=== PATIENT | female | born 1950 | race Caucasian/White ===

== ENCOUNTER 2019-08-12 12:48 | Outpatient (CLI) | payer MEDICARE, SELFPAY ==
--- NOTE | ~2019-08-12 | MMUS_ITS ---
EXAMINATION: MM diagnostic [facility] BI w ramy, US breast LT limited HISTORY: Six-month follow-up for probably benign left breast masses TECHNIQUE: Craniocaudal, mediolateral, and mediolateral oblique 3-D tomosynthesis images of the breas ts were performed and synthetic 2-D images were generated. A spot compression view of the right breas t is also obtained. CAD analysis was submitted and interpreted. High resolution limited left breast u ltrasound was performed. COMPARISON: 02/02/2019, 08/04/2018, 07/28/2018, 07/27/2017, 07/22/2016 BREAST PARENCHYMAL COMPOSITION: There are scattered areas of fibroglandular density. FINDINGS: MAMMOGRAPHIC FINDINGS: Right breast: There is an area of subtle, stable architectural distortion of the right breast at the site of prior excisional biopsy. No suspicious mass, calcification, or architectural distortion are i dentified. Left breast: There is a subtle 4 mm oval, obscured, equal density mass in the middle third of the out er breast at the 3:00 location approximately 6 cm from the nipple. No associated architectural distor tion or suspicious calcification are identified. ULTRASOUND: The previously described cluster of microcysts at the 12:00 location 4 cm from the nipple is no longe r identified. There is a 4 mm oval, circumscribed, parallel, hypoechoic mass at the 12:00 location 4 cm from the nipple which could reflect confluence of the previously described microcysts. There is a stable 3 mm round, anechoic mass with no posterior features or internal vascularity at the 2:00 locat ion 6 cm from the nipple. IMPRESSION: 1. Probably benign left breast findings and no mammographic evidence of malignancy in the right breas t. 2. Given one year of interval stability, recommend 12 month followup left diagnostic mammogram and ul trasound. BI-RADS category 3, probably benign findings. Reviewed, dictated and finalized at location A. [place] DEPARTMENT SUPERVISOR IMPRESSION: 1. Probably benign left breast findings and no mammographic evidence of maligna ncy in the right breast. 2. Given one year of interval stability, recommend 12 month followup left diagn ostic mammogram and ultrasound. BI-RADS category 3, probably benign findings.
== END 2019-08-12 12:49 | disposition home or self-care (01) ==
PROVIDERS: PCP Family Medicine; Visit Provider Family Medicine
DX: R92.8 Other abnormal and inconclusive findings on diagnostic imaging of breast (principal)
CPT/HCPCS: 76642; 77062; 77066; G0279

== ENCOUNTER 2020-09-18 11:19 | Outpatient (CLI) | payer MEDICARE, SELFPAY ==
--- NOTE | ~2020-09-18 | MMUS_ITS ---
EXAMINATION: MM diagnostic kalyani BI w ramy, US breast LT limited HISTORY: Six-month follow-up for probably benign left breast mass TECHNIQUE: Craniocaudal, mediolateral, and mediolateral oblique 3-D tomosynthesis images of the william ts were performed and synthetic 2-D images were generated. CAD analysis was submitted and interpreted . High resolution limited left breast ultrasound was performed. COMPARISON: 08/12/2019, 02/02/2019, 08/04/2018, 07/28/2018, 07/27/2017 BREAST PARENCHYMAL COMPOSITION: There are scattered areas of fibroglandular density. FINDINGS: MAMMOGRAPHIC FINDINGS: Right breast: Subtle right breast architectural distortion is again noted, most consistent with prior excisional biopsy. No suspicious mass, calcification, or architectural distortion are identified. Left breast: There is a stable 4 mm oval, obscured, equal density mass in the middle third of the out er breast at 3:00 location 6 cm from the nipple. No suspicious calcification or architectural distort ion are identified. ULTRASOUND: There is a 6 mm x 3 mm cluster of microcysts at the 12:00 location 3 cm from the nipple. Hypoechoic m asses at the 1:00 location 5 cm from the nipple continue to decrease in size. There is an intramammar y lymph node at the 3:00 location 5 cm from the nipple. A cyst is noted at the 12:00 location 4 cm fr om the nipple. IMPRESSION: 1. Left breast masses with two years of interval stability, consistent with benign findings. No mammo graphic or sonographic evidence of malignancy. 2. Recommend routine screening mammography in one year. BI-RADS Category 2: Benign finding(s). Reviewed, dictated and finalized at location A. IMPRESSION: 1. Left breast masses with two years of interval stability, consistent with linda ign findings. No mammographic or sonographic evidence of malignancy. 2. Recommend routine screening mammography in one year. BI-RADS Category 2: Benign finding(s).
== END 2020-09-18 11:20 | disposition home or self-care (01) ==
PROVIDERS: PCP Family Medicine; Visit Provider Family Medicine
DX: N60.01 Solitary cyst of right breast (principal)
CPT/HCPCS: 76642; 77062; 77066; G0279

== ENCOUNTER 2021-09-27 07:47 | Outpatient (CLI) | payer MEDICARE, SELFPAY ==
--- NOTE | ~2021-09-27 | MM_ITS ---
EXAMINATION: MM screening [facility] BI w ramy HISTORY: Screening TECHNIQUE: Craniocaudal and mediolateral oblique 3-D tomosynthesis images were obtained and synthetic 2-D images were generated. CAD analysis was submitted and interpreted. COMPARISON: Comparison to multiple prior studies sequentially, with oldest reviewed study dated 10/2017. BREAST PARENCHYMAL COMPOSITION: There are scattered areas of fibroglandular density. FINDINGS: There is a developing cluster of calcifications in the upper outer quadrant of the left chris ast. The right breast is stable without evidence for malignancy. IMPRESSION: 1. Developing cluster of left breast calcifications, upper outer quadrant. 2. Magnification views are recommended. BI-RADS Category 0: Incomplete: Needs additional imaging evaluation. Reviewed, dictated and finalized at location A.
== END 2021-09-27 07:48 | disposition home or self-care (01) ==
LOC: ANHIMG 07:49
PROVIDERS: PCP Family Medicine; Visit Provider Family Medicine
DX: Z12.31 Encounter for screening mammogram for malignant neoplasm of breast (principal); R92.8 Other abnormal and inconclusive findings on diagnostic imaging of breast
CPT/HCPCS: 77063; 77067

== ENCOUNTER 2021-10-07 12:50 | Outpatient (CLI) | payer MEDICARE, SELFPAY ==
--- NOTE | ~2021-10-07 | MM_ITS ---
EXAMINATION: MM diagnostic mammo unilat LT HISTORY: Developing clustered microcalcifications reported in posterior upper outer left breast on 09/28/2019 screening mammogram TECHNIQUE: Additional 3-D ML tomosynthesis images of the left breast were performed and synthetic 2-D images were generated. Magnification ML, MLO and CC projection views. CAD analysis was submitted and interpreted. COMPARISON: 09/27/2021 bilateral screening mammogram 09/18/2020 diagnostic bilateral mammogram 02/02/2019diagnostic left mammogram 08/04/2018 diagnostic left mammogram FINDINGS: There is a cluster of grouped microcalcifications in the posterior upper outer quadrant; si milar calcifications at same site are noted on prior mammograms above. These are consistent with linda ign mammographic lesion, likely calcified fibroadenoma, less likely benign calcified fat necrosis. IMPRESSION: 1. Benign finding 2. Routine mammographic screening is recommended BI-RADS Category 2: Benign finding(s). Reviewed, dictated and finalized at location A.
== END 2021-10-07 12:51 | disposition home or self-care (01) ==
LOC: ANHIMG 12:55
PROVIDERS: PCP Family Medicine; Visit Provider Family Medicine
DX: R92.8 Other abnormal and inconclusive findings on diagnostic imaging of breast (principal)
CPT/HCPCS: 77065

== ENCOUNTER 2022-11-26 13:03 | Outpatient (CLI) | payer MEDICARE, SELFPAY ==
--- NOTE | ~2022-11-26 | MM_ITS ---
EXAMINATION: MM screening [facility] BI w ramy HISTORY: Screening TECHNIQUE: Craniocaudal and mediolateral oblique 3-D tomosynthesis images were obtained and synthetic 2-D images were generated. CAD analysis was submitted and interpreted. COMPARISON: Comparison to multiple prior studies sequentially, with oldest reviewed study dated 08/04/2018. BREAST PARENCHYMAL COMPOSITION: There are scattered areas of fibroglandular density. FINDINGS: There is no evidence of suspicious mass, calcification, or architectural distortion to sugg est malignancy in either breast. There has been no suspicious interval change. IMPRESSION: 1. No mammographic evidence of malignancy. 2. Recommend routine screening mammography in one year. BI-RADS Category 1: Negative Reviewed, dictated and finalized at location A.
== END 2022-11-26 13:04 | disposition home or self-care (01) ==
LOC: ANHIMG 13:04
PROVIDERS: PCP Family Medicine; Visit Provider Family Medicine
DX: Z12.31 Encounter for screening mammogram for malignant neoplasm of breast (principal)
CPT/HCPCS: 77063; 77067

== ENCOUNTER 2023-07-30 10:00 | Outpatient (CLI) | payer MEDICARE, SELFPAY ==
--- NOTE | ~2023-07-30 | XR_ITS ---
Clinical Indication: PAF PA and lateral views of the chest: Comparison: None Findings: The lungs are clear, without evidence of focal consolidation or pleural effusion. Cardiome diastinal silhouette is within normal limits. Bones and soft tissues are unremarkable. Impression: Normal chest. Reviewed, dictated and finalized at location . 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
--- NOTE | 2023-07-31 07:04 | WPDPFTINT ---
PFT Procedure Performed PFT Procedure Performed Plethysmography (Lung Vol) Diffusing Cap (DLCO) Flow Vol Loop Spirometry w/o Bronchodil PFT Interpretation This is a pulmonary function test with spirometry, plethysmography and diffusing capacity. The test was performed and results interpreted in accordance with the 2019 and 2005 ATS/ERS Task Force guidelines respectively using the Global Lung Function Initiative-2012 reference equations. Patient demonstrated good effort and cooperation. Reproducibility criteria were met. The quality of the spirometry maneuver was Grade A. Of note, the patient had good effort but had difficulty with testing due to being extremely claustrophobic. Findings: Spirometry: There is decreased maximal expiratory airflow at all lung volumes. The contour the inspiratory flow tracing is normal. The FVC is 3.17 L, 153% predicted. The FEV1 is 1.91 L, 117% predicted. The FEV1: FVC ratio 60%. Plethysmography: The total lung capacity is 4.54 L, 118% predicted. The functional residual capacity is 1.96 L, 91% predicted. The residual volume is 1.37 L, 76% predicted. Diffusing capacity: The diffusing capacity unadjusted for hemoglobin and carboxyhemoglobin is 18.7, 109% predicted. The diffusing capacity adjusted for alveolar volume is 3.79, 82% predicted. Impression: There is a mild obstructive abnormality with a normal FEV1. The lung volumes are normal. The diffusing capacity is normal. There are no prior studies for comparison
== END 2023-07-30 10:01 | disposition home or self-care (01) ==
LOC: ANHPFT 10:03
PROVIDERS: PCP Family Medicine; Visit Provider Internal Medicine Cardiovascular Disease
DX: I48.0 Paroxysmal atrial fibrillation (principal); Z79.899 Other long term (current) drug therapy
CPT/HCPCS: 71046; 94375; 94726; 94729

== ENCOUNTER 2024-02-04 14:26 | Outpatient (CLI) | payer MEDICARE, SELFPAY ==
--- NOTE | ~2024-02-04 | MM_ITS ---
EXAMINATION: MM screening [facility] BI w ramy HISTORY: Screening TECHNIQUE: Craniocaudal and mediolateral oblique 3-D tomosynthesis images were obtained and synthetic 2-D images were generated. CAD analysis was submitted and interpreted. COMPARISON: Comparison to multiple prior studies sequentially, with oldest reviewed study dated 08/12. BREAST PARENCHYMAL COMPOSITION: Not dense: There are scattered areas of fibroglandular density. FINDINGS: There is no evidence of suspicious mass, calcification, or architectural distortion to sugg est malignancy in either breast. There has been no suspicious interval change. IMPRESSION: 1. No mammographic evidence of malignancy. 2. Recommend routine screening mammography in one year. BI-RADS Category 1: Negative Reviewed, dictated and finalized at location B.
== END 2024-02-04 14:27 | disposition home or self-care (01) ==
LOC: ANHIMG 14:27
PROVIDERS: PCP Family Medicine; Visit Provider Family Medicine
DX: Z12.31 Encounter for screening mammogram for malignant neoplasm of breast (principal)
CPT/HCPCS: 77063; 77067

== ENCOUNTER 2024-08-02 00:23 | Day surgery (SDC) | payer MEDICARE, SELFPAY ==
[2024-07-25 13:46] VITALS: BMI 22.9
--- OUTSIDE RECORDS SUMMARY | 2024-08-02 00:25 | XMS_ITS | Referral Summary ---
Author Organization [facility] [address] [facility] [address] [place] [address] Care Team Providers Care Grain Wafer Machine Operator Name Role Phone Avtar Frausto MD Primary Care Provider Encounters Date Type Department Care Team Description 07/25/2024 Orders Only [facility] Medical [facility] Cardiology [address] [place] [address] Avtar Frausto MD 07/20/2024 10:00 AM SERVICE CENTER SUPERVISOR Office Visit [facility] Medical [facility] Cardiology [address] [facility] [address] [place] [address] Keegan Monsalve MD PAF (paroxysmal atrial fibrillation) (CMS/HCC) (HCC) (Primary Dx); On amiodarone therapy; Chronic anticoagulation; White coat syndrome with diagnosis of hypertension from Last 3 Months Allergies No known active allergies Medications cartilage/colla gen II/hyaluron (MOVE FREE ULTRA ORAL) Take by mouth daily Active apixaban (ELIQUIS) 5 mg tablet Take 1 tablet (5 mg total) by mouth 2 (two) times a day Active hydroCHLOROthia zide (HYDRODIURIL) 25 mg tablet Take 1 tablet (25 mg total) by mouth daily Active amLODIPine (NORVASC) 10 mg tablet Take 1 tablet (10 mg total) by mouth daily Active rosuvastatin (CRESTOR) 5 mg tablet 3 Active amiodarone (PACERONE) 200 mg tablet TAKE ONE-HALF TABLET BY MOUTH DAILY 45 tablet 3 4 Active carvediloL (COREG) 25 mg tablet TAKE 1 TABLET BY MOUTH TWICE DAILY WITH MEALS 200 tablet 5 Active losartan (COZAAR) 100 mg tablet TAKE 1 TABLET BY MOUTH DAILY 100 tablet 5 Active carvediloL (COREG) 25 mg tablet TAKE 1 TABLET BY MOUTH TWICE DAILY WITH MEALS 200 tablet 3 4 07/11/19 25 Discontinued losartan (COZAAR) 100 mg tablet TAKE 1 TABLET BY MOUTH DAILY 100 tablet 3 4 07/11/19 25 Discontinued Active Problems No known active problems Social History Tobacco Use Types Packs/Day Years Used Date Smoking Tobacco: Never Smokeless Tobacco: Never Alcohol Use Standard Drinks/Week Comments Not Currently 0 (1 standard drink = 0.6 oz pur e alcohol) Comments Unknown Sex and Gender Information Value Date Recorded Sex Assigned at Not on file Legal Sex Female 1:46 PM CDT Gender Identity Not on file Sexual Orientation Not on file Last Filed Vital Signs Vital Sign Reading Time Taken Comments Blood Pressure 122/79 07/20/2024 10:19 AM SERVICE CENTER SUPERVISOR Pulse 66 07/20/2024 10:19 AM SERVICE CENTER SUPERVISOR Temperature 36.3 C (97.3 F) 07/06/2020 10:13 AM SERVICE CENTER SUPERVISOR Respiratory Rate - - Oxygen Saturation 97% 07/20/2024 10:19 AM SERVICE CENTER SUPERVISOR Inhaled Oxygen Concentration - - Weight 66.2 kg (146 lb) 07/20/2024 10:19 AM SERVICE CENTER SUPERVISOR Height 170.2 cm (5' 7 ) 07/20/2024 10:19 AM SERVICE CENTER SUPERVISOR Body Mass Index 22.87 07/20/2024 10:19 AM SERVICE CENTER SUPERVISOR Plan of Treatment Not on file Procedures Procedure Name Priority Date/Time Associated Diagnosis Comments ELECTROCARDIOGRAM REPORT Routine 025 11:55 AM SERVICE CENTER SUPERVISOR PAF (paroxysmal atrial fibrillation) (CMS/HCC) (HCC) from Last 3 Months Results * Electrocardiogram Report (07/21/2024 11:55 AM SERVICE CENTER SUPERVISOR) Keegan Monsalve MD ECG ORDERABLES Edited Result - Final from Last 3 Months Insurance [employer] [facility] Care Teams Grain Wafer Machine Operator Relationship Specialty Start Date End Date Avtar Frausto MD [address] [place] [id number] PCP - General Family Medicine 10/23/17
--- OUTSIDE RECORDS SUMMARY | 2024-08-02 00:25 | XMS_ITS | Clinical Summary ---
Author Organization [facility] [address] Address [address] [place] [address] Care Team Providers Care Human Resource Manager Name Role Phone Avtar Frausto MD Primary Care Provider [phone] Allergies No known active allergies Medications cartilage/colla [...] Discontinued Active Problems No known active problems Encounters Date Type Department Care Team Description 07/25/2024 Orders Only [facility] Cardiology [address] [place] [address] Avtar Frausto MD 07/20/2024 10:00 AM RECEIVING TEAM MEMBER Office Visit [facility] Medical Group Cardiology [address] [place] [address] Keegan Monsalve MD PAF (paroxysmal atrial fibrillation) (CMS/HCC) (HCC) (Primary Dx); On amiodarone therapy; Chronic anticoagulation; White coat syndrome with diagnosis of hypertension from Last 3 Months Surgical History Surgery Date Site/Laterality Comments TUMOR EXCISION 03/22/2017 - 04/21/2017 Medical History Medical History Date Comments Hypertension Diverticulitis Atrial fibrillation (CMS/HCC) (HCC) Family History Medical History Relation Name Comments Hypertension Brother 1 Leonardo Hypertension Brother 2 Leonardo Benavides Hypertension Daughter Nilda Hyperlipidemia Father Al Benavides Colon cancer Mother Hypertension Sister 1 Bell Hypertension Sister 2 Hypertension Sister 3 Catia Hypertension Son Adrian Relation Name Status Comments Brother 1 Leonardo Alive Brother 2 Leonardo Benavides Alive Daughter Nilda Father Al Benavides (Age 95) Mother (Age 72) Sister 1 Bell Alive Sister 2 Alive Sister 3 Catia Son Adrian Social History Tobacco Use Types Packs/Day Years Used Date Smoking Tobacco: Never Smokeless Tobacco: Never Alcohol Use Standard Drinks/Week Comments Not Currently 0 (1 standard drink = 0.6 oz pur e alcohol) Comments Unknown Sex and Gender Information Value Date Recorded Sex Assigned at Not on file Legal Sex Female 1:46 PM CDT Gender Identity Not on file Sexual Orientation Not on file Obstetrics History Last Filed Vital Signs Vital Sign Reading Time Taken Comments Blood Pressure 122/79 07/20/2024 10:19 AM RECEIVING TEAM MEMBER Pulse 66 07/20/2024 10:19 AM RECEIVING TEAM MEMBER Temperature 36.3 C (97.3 F) 07/06/2020 10:13 AM RECEIVING TEAM MEMBER Respiratory Rate - - Oxygen Saturation 97% 07/20/2024 10:19 AM RECEIVING TEAM MEMBER Inhaled Oxygen Concentration - - Weight 66.2 kg (146 lb) 07/20/2024 10:19 AM RECEIVING TEAM MEMBER Height 170.2 cm (5' 7 ) 07/20/2024 10:19 AM RECEIVING TEAM MEMBER Body Mass Index 22.87 07/20/2024 10:19 AM RECEIVING TEAM MEMBER Plan of Treatment Health Maintenance Due Date Last Done Comments Breast Cancer Screening-Mammogram 1950 Colon Cancer Screening-Colonoscopy 1950 Depression Screening 1950 Fall Risk Assessment 1950 Hepatitis C Screening 1950 Osteoporosis Screening-Bone Density Scan 1950 Hepatitis B Screening 10/27/1969 Zoster Vaccine (2 of 3) 02/24/2012 12/30/2011 DTaP/Tdap/Td Vaccine (2 - Td or Tdap) 11/27/2015 11/26/2005, 10/02/1987 Well Visit 65+ 10/27/2016 Pneumococcal vaccine 65+ Completed 04/19/2019, 03/23 Influenza Vaccine Completed 04/27/2024, , 04/19/2019, Additional history exists Procedures Procedure Name Priority Date/Time Associated Diagnosis Comments ELECTROCARDIOGRAM REPORT Routine 025 11:55 AM RECEIVING TEAM MEMBER PAF (paroxysmal atrial fibrillation) (CMS/HCC) (HCC) from Last 3 Months Results * Electrocardiogram Report (07/21/2024 11:55 AM RECEIVING TEAM MEMBER) us Keegan Monsalve MD ECG ORDERABLES Edited Result - Final from Last 3 Months Insurance [facility] LIFE INS CO [facility] MDCR HMO REF [facility] MDCR HMO REF Care Teams Human Resource Manager Relationship Specialty Start Date End Date Avtar Frausto MD [address] [place] [id number] PCP - General Family Medicine 10/23/17
[2024-08-02 07:30] VITALS: BP 141/86; PULSE 67; RESP 18; TEMP 36.1; O2SAT 99
[2024-08-02] MEDS: LACTATED RINGERS 1,000 ML 150 ML IV CONT (07:38)
--- NOTE | 2024-08-02 08:23 | WPDANESEPPF ---
Anes - Initial Pre Proc Eval Procedure: Operation Date: 08/02/24 08:30 Proposed Procedures p Colonoscopy - Sundeep Lujan MD Date/Time: 08/02/24 08:23 Surgeon: Sundeep Lujan MD Pre Op Diagnosis: family hx of cancer, hx of colon polyps Patient Data Age: 73 Gender: F Height: 1.7 m Weight: 65.5 kg Last Vital Signs Temp 36.1 C L 08/02/24 07:30 Pulse 67 08/02/24 07:30 Resp 18 08/02/24 07:30 BP 141/86 H 08/02/24 07:30 Pulse Ox 99 08/02/24 07:30 O2 Del Method Room Air 08/02/24 07:30 Allergies Allergy/AdvReac Type Severity Reaction Status Date / Time dronedarone (From Multaq) Allergy Shakiness Verified 08/02/24 07:27 codeine AdvReac Intermediate NAUSEA, Verified 08/02/24 07:27 VOMITING AND HEADACHE. TAPE Allergy Mild SKIN Uncoded 08/02/24 07:27 IRRITATION Home Medications ?Medication ?Instructions ?Recorded ?Confirmed ?Type carvedilol 25 mg tablet 25 mg PO Q12H 08/26/22 08/02/24 History losartan 100 mg tablet 100 mg PO DAILY 08/26/22 08/02/24 History amiodarone 200 mg tablet 100 mg PO DAILY 09/18/22 08/02/24 History apixaban 5 mg tablet 5 mg PO BID #200 tabs 03/22/24 08/02/24 Rx amlodipine 10 mg tablet 10 mg PO DAILY #100 tabs 04/22/24 08/02/24 Rx hydrochlorothiazide 25 mg tablet 25 mg PO DAILY #100 tabs 04/22/24 08/02/24 Rx rosuvastatin 5 mg tablet 5 mg PO DAILY #100 tabs 04/22/24 08/02/24 Rx cartilage 40 mg-collagen II-boron 1 tablet PO DAILY 07/25/24 08/02/24 History 5 mg-hyaluronate sod 3.3 mg tablet (Move Free Ultra Triple Action (boron)) Patient hx anesthesia problems: none Family hx anesthesia problems: none Results Review: All pre-operative results and documents have been reviewed as part of the pre-operative evaluation. [facility] Past Medical History Medical History (Updated 11/06/24 @ 13:22 by Avtar Frausto MD) Personal history of colon polyps, unspecified Other retirement (current) drug therapy Family history of malignant neoplasm of digestive organs Atrial fibrillation Hypertension Arthritis Social History Social History Smoking status: Never smoker Second hand tobacco smoke exposure: No Alcohol intake: current Drinks per week: 1 Alcohol use details: DIANA Substance use: never Substance use type: does not use Do You Feel Safe in your Home?: Yes Lack of Transportation: No Lack of Food: Never True Current Housing: I Have Housing Concerned About Future Housing: No Difficulty Paying Gas/Electric Bills: No Difficulty Paying for Meds: No Currently Unemployed: No Education: Associate Degree Difficulty w/ Childcare or Family Care: No Living arrangements: alone Occupation/Education: retired Gender identity (if verbalized by the patient): Female Sexual Orientation (if Verbalized by the Patient): Straight or Heterosexual Spiritual care concerns: No Anes - Eval Final PreProcedure Day of Procedure 08/02/24 08:23 Patient weight: normal Results Review: All pre-operative results and documents have been reviewed as part of the pre-operative evaluation. Informed Consent: The patient's anesthetic plan and its attendant risks and benefits were discussed with the patient/family/POA. Questions were solicited and answers provided to the satisfaction of the patient/family/POA.
--- NOTE | 2024-08-02 08:26 | P.HP_ITS ---
H&P: HPI History of Present Illness Date/Time: 08/02/24 08:26 Chief Complaint: Family history of colon cancer Narrative: This patient has family history of colorectal cancer. her mother had colon cancer when she was 72. In addition, 2 sisters and 2 brothers and her 50-year-old son have colon polyps. her last colonoscopy was 5 years ago and she had polyps. Review of Systems Review of Systems: All systems reviewed & are unremarkable except as noted in HPI and below PMFSH Past Medical History Medical History (Updated 04/27/24 @ 13:22 by Avtar Frausto MD) Personal history of colon polyps, unspecified Other senior care (current) drug therapy Family history of malignant neoplasm of digestive organs Atrial fibrillation Hypertension Arthritis Social History Social History Smoking status: Never smoker Second hand tobacco smoke exposure: No Alcohol intake: current Drinks per week: 1 Alcohol use details: DIANA Substance use: never Substance use type: does not use Do You Feel Safe in your Home?: Yes Lack of Transportation: No Lack of Food: Never True Current Housing: I Have Housing Concerned About Future Housing: No Difficulty Paying Gas/Electric Bills: No Difficulty Paying for Meds: No Currently Unemployed: No Education: Associate Degree Difficulty w/ Childcare or Family Care: No Living arrangements: alone Occupation/Education: retired Gender identity (if verbalized by the patient): Female Sexual Orientation (if Verbalized by the Patient): Straight or Heterosexual Spiritual care concerns: No Meds Home Medications and Allergies Home Medications ?Medication ?Instructions ?Recorded ?Confirmed ?Type carvedilol 25 mg tablet 25 mg PO Q12H 08/26/22 08/02/24 History losartan 100 mg tablet 100 mg PO DAILY 08/26/22 08/02/24 History amiodarone 200 mg tablet 100 mg PO DAILY 09/18/22 08/02/24 History apixaban 5 mg tablet 5 mg PO BID #200 tabs 03/22/24 08/02/24 Rx amlodipine 10 mg tablet 10 mg PO DAILY #100 tabs 04/22/24 08/02/24 Rx hydrochlorothiazide 25 mg tablet 25 mg PO DAILY #100 tabs 04/22/24 08/02/24 Rx rosuvastatin 5 mg tablet 5 mg PO DAILY #100 tabs 04/22/24 08/02/24 Rx cartilage 40 mg-collagen II-boron 1 tablet PO DAILY 07/25/24 08/02/24 History 5 mg-hyaluronate sod 3.3 mg tablet (Move Free Ultra Triple Action (boron)) Allergies Allergy/AdvReac Type Severity Reaction Status Date / Time dronedarone (From Multaq) Allergy Shakiness Verified 08/02/24 07:27 codeine AdvReac Intermediate NAUSEA, Verified 08/02/24 07:27 VOMITING AND HEADACHE. TAPE Allergy Mild SKIN Uncoded 08/02/24 07:27 IRRITATION Vital Signs Vital Signs - 24 hr 08/02/24 07:30 Temperature 97 F L Pulse Rate 67 Respiratory Rate 18 Blood Pressure 141/86 H Pulse Oximetry 99 Oxygen Delivery Room Air Exam Const: General: cooperative and healthy appearing Resp: Effort & Inspection: normal respiratory effort and able to speak in complete sentences Auscultation: clear to auscultation bilaterally Cardio: Rate: regular rate Rhythm: regular rhythm GI: Inspection: normal to inspection GI Palp: No No hepatosplenomegaly present Auscultation: normal bowel sounds Rectal Exam: deferred Skin: General skin exam: normal color Psych: Appearance: grossly normal Mental Status: mental status grossly normal Assessment and Plan Assessment and plan (1) Personal history of colon polyps, unspecified: Code(s): Z86.0100 - Personal history of colon polyps, unspecified Status: Acute Assessment and Plan: The patient is deemed a good candidate for the procedure. Consent signed. Will proceed. (2) Family history of malignant neoplasm of digestive organs: Code(s): Z80.0 - Family history of malignant neoplasm of digestive organs Status: Acute
--- NOTE | 2024-08-02 08:32 | WPDANESEPPF ---
Anes - Initial Pre Proc Eval Procedure: Operation Date: 08/02/24 08:30 Proposed Procedures p Colonoscopy - Sundeep Lujan MD Date/Time: 08/02/24 08:32 Surgeon: Sundeep Lujan MD Pre Op Diagnosis: family hx of cancer, hx of colon polyps Patient Data Age: 73 Gender: F Height: 1.7 m Weight: 65.5 kg Last Vital Signs Temp 36.1 C L 08/02/24 07:30 Pulse 67 08/02/24 07:30 Resp 18 08/02/24 07:30 BP 141/86 H 08/02/24 07:30 Pulse Ox 99 08/02/24 07:30 O2 Del Method Room Air 08/02/24 07:30 Allergies Allergy/AdvReac Type Severity Reaction Status Date / Time dronedarone (From Multaq) Allergy Shakiness Verified 08/02/24 07:27 codeine AdvReac Intermediate NAUSEA, Verified 08/02/24 07:27 VOMITING AND HEADACHE. TAPE Allergy Mild SKIN Uncoded 08/02/24 07:27 IRRITATION Home Medications ?Medication ?Instructions ?Recorded ?Confirmed ?Type carvedilol 25 mg tablet 25 mg PO Q12H 08/26/22 08/02/24 History losartan 100 mg tablet 100 mg PO DAILY 08/26/22 08/02/24 History amiodarone 200 mg tablet 100 mg PO DAILY 09/18/22 08/02/24 History apixaban 5 mg tablet 5 mg PO BID #200 tabs 03/22/24 08/02/24 Rx amlodipine 10 mg tablet 10 mg PO DAILY #100 tabs 04/22/24 08/02/24 Rx hydrochlorothiazide 25 mg tablet 25 mg PO DAILY #100 tabs 04/22/24 08/02/24 Rx rosuvastatin 5 mg tablet 5 mg PO DAILY #100 tabs 04/22/24 08/02/24 Rx cartilage 40 mg-collagen II-boron 1 tablet PO DAILY 07/25/24 08/02/24 History 5 mg-hyaluronate sod 3.3 mg tablet (Move Free Ultra Triple Action (boron)) Patient hx anesthesia problems: none Family hx anesthesia problems: none Results Review: All pre-operative results and documents have been reviewed as part of the pre-operative evaluation. 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 Family history of malignant neoplasm of digestive organs Atrial fibrillation Hypertension Arthritis Social History Social History Smoking status: Never smoker Second hand tobacco smoke exposure: No Alcohol intake: current Drinks per week: 1 Alcohol use details: DIANA Substance use: never Substance use type: does not use Do You Feel Safe in your Home?: Yes Lack of Transportation: No Lack of Food: Never True Current Housing: I Have Housing Concerned About Future Housing: No Difficulty Paying Gas/Electric Bills: No Difficulty Paying for Meds: No Currently Unemployed: No Education: Associate Degree Difficulty w/ Childcare or Family Care: No Living arrangements: alone Occupation/Education: retired Gender identity (if verbalized by the patient): Female Sexual Orientation (if Verbalized by the Patient): Straight or Heterosexual Spiritual care concerns: No Anes - Eval Final PreProcedure Day of Procedure 08/02/24 08:32 Patient weight: normal Heart: regular rate and rhythm Lungs: clear to auscultation Airway: Mallampati scale class 1 Neurological: alert and oriented Last oral intake: >/= 8 hours ASA classification: III Emergent: no Anesthetic plan: proceed Anesthesia type and monitoring: general GIVS and standard monitoring Results Review: All pre-operative results and documents have been reviewed as part of the pre-operative evaluation. Informed Consent: The patient's anesthetic plan and its attendant risks and benefits were discussed with the patient/family/POA. Questions were solicited and answers provided to the satisfaction of the patient/family/POA.
[2024-08-02 09:03] VITALS: BP 113/62; PULSE 62; RESP 20; O2SAT 100
[2024-08-02 09:13] VITALS: BP 126/74; PULSE 58; RESP 18; O2SAT 100
[2024-08-02 09:23] VITALS: BP 131/72; PULSE 53; RESP 17; O2SAT 98
== END 2024-08-02 09:30 | disposition home or self-care (01) ==
PROVIDERS: PCP Family Medicine; Visit Provider Internal Medicine Gastroenterology
PROC: 0DJD8ZZ Inspection of Lower Intestinal Tract, Via Natural or Artificial Opening Endoscopic (ICD-10-PCS; CPT 45378; principal; 2024-08-02 08:30)
DX: Z12.11 Encounter for screening for malignant neoplasm of colon (principal); D12.2 Benign neoplasm of ascending colon; D12.8 Benign neoplasm of rectum; K57.30 Diverticulosis of large intestine without perforation or abscess without bleeding; I10 Essential (primary) hypertension; I48.91 Unspecified atrial fibrillation; M19.90 Unspecified osteoarthritis, unspecified site; Z79.01 Long term (current) use of anticoagulants; Z79.899 Other long term (current) drug therapy; Z80.0 Family history of malignant neoplasm of digestive organs
CPT/HCPCS: 45385; 88305; J2003; J2704; J7120

== ENCOUNTER 2025-03-15 14:27 | Inpatient (IN) | payer MEDICARE, SELFPAY ==
[2025-03-15] VITALS (8 sets, daily range): BP systolic 160–171; BP diastolic 69–83; PULSE 62–72; RESP 14–20; TEMP 36.7; O2SAT 95–99; BMI 24.5
--- NOTE | ~2025-03-15 | MR_ITS ---
EXAMINATION: MR brain/brain stem wo/w con COMPARISON: None HISTORY: Persistent vertigo TECHNIQUE: Multiplanar multisequence images obtained of the brain without and with intravenous contrast, Prohance 17cc injected IV. FINDINGS: Cerebellar tonsils are normal in location. No abnormal signal in the clivus of the cervical spine. Pituitary does not appear enlarged There is no acute infarct or hemorrhage identified Scattered areas of abnormal signal within the subcortical white matter probably represent chronic areas of periventricular ischemic change No hydrocephalus or midline shift. No extra-axial fluid collections. Appropriate flow voids are maintained The mastoid air cells, sinuses and orbits are unremarkable There is no abnormal enhancement identified There is no acute infarct or hemorrhage IMPRESSION: No acute process Reviewed, dictated and finalized at location P. IMPRESSION: No acute process
--- NOTE | ~2025-03-15 | CT_ITS ---
EXAMINATION: CTA brain carotid DATE: 03/15/2025 17:20 CDT INDICATION: Persistent vertigo TECHNIQUE: Computed tomographic angiography (CTA) of the head was performed without and with 100 mL Omnipaque-350 intravenous contrast. CTA of the neck was performed with intravenous contrast. The dose-length product was 1713.03 mGy-cm. Maximum intensity projection and volume rendered 3D-reconstructions were created by the technologist on a separate workstation. COMPARISON: None. FINDINGS: HEAD CTA: There is a chronic right frontal lobe infarction. There are scattered mild periventricular and subcortical white matter changes, most likely related to small vessel ischemic disease (microangiopathy). No acute infarction, hemorrhage, mass or mass effect. There is intracranial atherosclerosis. There is a dominant right vertebral artery. The anterior, middle and posterior cerebral arteries are patent without significant stenosis, occlusion or aneurysm. Paranasal sinuses and mastoids are pneumatized. No depressed skull fractures. NECK CTA: There is mild atherosclerosis at the origin of the internal carotid arteries with stenosis less than 10% on the right. No significant stenosis on the left. There is atherosclerosis of the aortic arch. The origin of the carotid and vertebral arteries are patent. No evidence for carotid dissection. No significant cervical lymphadenopathy. Heterogeneous appearance to the thyroid gland with small bilateral hypovascular lesions, largest in the left lobe measuring 1 cm, likely benign. Consider correlation with thyroid ultrasound. There is a partially visualized low-density mass in the anterior mediastinum measuring fluid attenuation likely benign. IMPRESSION: 1.: No acute intracranial abnormality. Chronic right frontal lobe infarction. 2: No significant vascular abnormality of the head or neck. Reviewed, dictated and finalized at location O.
--- OUTSIDE RECORDS SUMMARY | 2025-03-15 14:35 | XMS_ITS | Clinical Summary ---
Author Organization [facility] [address] Address [address] [place] [address] Care Team Providers Care Chief Service Dispatcher Name Role Phone Avtar Frausto MD Primary Care Provider [phone] Allergies No known active allergies Medications cartilage/collag en II/hyaluron (MOVE FREE ULTRA ORAL) Take by mouth daily Active apixaban (ELIQUIS) 5 mg tablet Take 1 tablet (5 mg total) by mouth 2 (two) times a day Active hydroCHLOROthiaz celia (HYDRODIURIL) 25 mg tablet Take 1 tablet (25 mg total) by mouth daily Active amLODIPine (NORVASC) 10 mg tablet Take 1 tablet (10 mg total) by mouth daily Active rosuvastatin (CRESTOR) 5 mg tablet 06/26/2022 Active losartan (COZAAR) 100 mg tablet TAKE 1 TABLET BY MOUTH DAILY 100 tablet 2 09/19/2024 Active carvediloL (COREG) 25 mg tablet TAKE 1 TABLET BY MOUTH TWICE DAILY WITH MEALS 200 tablet 2 09/19/2024 Active amiodarone (PACERONE) 200 mg tablet TAKE ONE-HALF TABLET BY MOUTH DAILY 50 tablet 2 01/30/2025 Active Active Problems No known active problems Surgical History Surgery Date Site/Laterality Comments TUMOR EXCISION 03/22/2017 - 04/21/2017 Medical History Medical History Date Comments Hypertension Diverticulitis Atrial fibrillation (HCC) Family History Medical History Relation Name Comments Hypertension Brother 1 Leonardo Hypertension Brother 2 Leonardo Benavides Hypertension Daughter Nilda Hyperlipidemia Father Al Benavides Colon cancer Mother Hypertension Sister 1 Bell Hypertension Sister 2 Hypertension Sister 3 Ctaia Hypertension Son Adrian Relation Name Status Comments Brother 1 Leonardo Alive Brother 2 Leonardo Benavides Alive Daughter Nilda Father Carlito Benavides (Age 95) Mother (Age 72) Sister 1 Bell Alive Sister 2 Alive Sister 3 Catia Campbell Social History Tobacco Use Types Packs/Day Years [...] Comments Blood Pressure 122/79 07/20/2024 10:19 AM [employer] Pulse 66 07/20/2024 10:19 AM [employer] Temperature 36.3 C (97.3 F) 07/06/2020 10:13 AM [employer] Respiratory Rate - - Oxygen Saturation 97% 07/20/2024 10:19 AM [employer] Inhaled Oxygen Concentration - - Weight 66.2 kg (146 lb) 07/20/2024 10:19 AM [employer] Height 170.2 cm (5' 7) 07/20/2024 10:19 AM [employer] Body Mass Index 22.87 07/20/2024 10:19 AM [employer] Plan of Treatment Health Maintenance Due Date Last Done Comments Breast Cancer Screening-Mammogram 1950 Colon Cancer Screening-Colonoscopy 1950 Depression Screening 1950 Fall Risk Assessment 1950 Hepatitis C Screening 1950 Osteoporosis Screening-Bone Density Scan 1950 Hepatitis B Screening 10/27/1969 Zoster Vaccine (2 of 3) 02/24/2012 12/30/2011 DTaP/Tdap/Td Vaccine (2 - Td or Tdap) 11/27/2015 11/26/2005, 10/02/1987 Well Visit 65+ 10/27/2016 Influenza Vaccine (#1) 2025 4, 03/21/2020, 04/19/2019, Additional history exists Pneumococcal vaccine 65+ Completed 04/19/2019, 03/23 Insurance [employer] [facility] Care Teams Chief Service Dispatcher Relationship Specialty Start Date End Date Avtar Frausto MD [address] [place] [id number] PCP - General Family Medicine 10/23/17
--- OUTSIDE RECORDS SUMMARY | 2025-03-15 14:35 | XMS_ITS | Encounter Summary ---
Author Organization [facility] Healthcare Address [address] [place] [address] Care Team Providers Care Employment Coach Name Role Phone Avtar Frausto MD Primary Care Provider [phone] Encounter Details Date Type Department Care Team (Late st Contact Info) Description 10/20/2017 Orders Only [facility] [place] Health Information Management [address] [place] [id number] Scanning, Provider Social History Tobacco Use Types Packs/Day Years Used Date Smoking Tobacco: Never Assessed Comments Unknown Sex and Gender Information Value Date Recorded Sex Assigned at Not on file Legal Sex Female 1:46 PM CDT Gender Identity Not on file Sexual Orientation Not on file documented as of this encounter Plan of Treatment Not on file documented as of this encounter Procedures Procedure Name Priority Date/Time Associated Diagnosis Comments CARDIOLOGY DOCUMENT SCAN 10/20/2017 documented in this encounter Results * Cardiology Document Scan (10/20/2017) Anatomical Region Laterality Modality Other us Provider Scanning [facility] CARDIAC SERVICES PROCEDURES Final Result documented in this encounter Visit Diagnoses Not on filedocumented in this encounter Care Teams Employment Coach Relationship Specialty Start Date End Date Avtar Frausto MD [address] [place] [id number] PCP - General Family Medicine 10/23/17 documented as of this encounter
--- OUTSIDE RECORDS SUMMARY | 2025-03-15 14:35 | XMS_ITS | Encounter Summary ---
Author Organization [facility] Healthcare Address [address] [place] [address] Care Team Providers Care Coating Mixer Supervisor Name Role Phone Avtar Frausto MD Primary Care Provider [phone] Encounter Details Date Type Department Care Team (Late st Contact Info) Description 11/22/2017 Orders Only [facility] Health Information Management [address] [place] [id number] Scanning, Provider Social History Tobacco Use [...] Date/Time Associated Diagnosis Comments CARDIOLOGY DOCUMENT SCAN 11/22/2017 documented in this encounter Results * Cardiology Document Scan (11/22/2017) Anatomical Region Laterality Modality Other us Provider Scanning [facility] CARDIAC SERVICES PROCEDURES Final Result documented in this encounter Visit Diagnoses Not on filedocumented in this encounter Care Teams Coating Mixer Supervisor Relationship Specialty Start Date End Date Avtar Frausto MD [address] [place] [id number] PCP - General Family Medicine 10/23/17 documented as of this encounter
--- OUTSIDE RECORDS SUMMARY | 2025-03-15 14:35 | XMS_ITS | Encounter Summary ---
Author Organization [facility] Healthcare Address [address] [place] [address] Care Team Providers Care Configurator Name Role Phone Avtar Frausto MD Primary Care Provider [phone] Encounter Details Date Type Department Care Team (Late st Contact Info) Description 11/19/2017 Orders Only [facility] [place] Health Information Management [address] [place] [id number] Scanning, Provider Social History Tobacco Use [...] Date/Time Associated Diagnosis Comments CARDIOLOGY DOCUMENT SCAN 11/19/2017 documented in this encounter Results * Cardiology Document Scan (11/19/2017) Anatomical Region Laterality Modality Other us Provider Scanning CV CARDIAC SERVICES PROCEDURES Final Result documented in this encounter Visit Diagnoses Not on filedocumented in this encounter Care Teams Configurator Relationship Specialty Start Date End Date Avtar Frausto MD [address] [place] [id number] PCP - General Family Medicine 10/23/17 documented as of this encounter
[2025-03-15 15:09] LABS: Hematocrit 41.3 % (37.0-47.0); Hemoglobin 13.7 g/dL (12.0-15.0); Immature Granulocyte Percent A 0.4 % (0-0.5); Lymphocytes Absolute Auto 0.96 K/mm3 (0.9-3.2); Mean Corpuscular HGB Conc 33.2 g/dl (32-36); Mean Corpuscular Hemoglobin 30.1 pg (26-34); Mean Corpuscular Volume 90.8 fl (80-100); Nucleated Red Blood Cells Absolute Auto 0.000 K/mm3 (0.0-0.012); Nucleated Red Blood Cells Perc 0.0 % (0.0-0.2); Platelet Count Result 267 k/mm3 (150-375); Red Blood Count 4.55 M/mm3 (4.2-5.4); White Blood Count 11.5 K/mm3 (4.5-10.0)
[2025-03-15 15:22] LABS: Add Urine Microscopic? NO; Appearance Urine Clear (Clear); Glucose Urine UA Negative (Negative); Leukocyte Esterase Ur Negative LEU/UL (Negative); Nitrate Urine Negative (Negative); Non Pathogenic Casts 0-2; Specific Grav Ur 1.012 (1.001-1.035)
[2025-03-15 15:29] LABS: Alanine Aminotransferase 20 U/L (6-35); Albumin Level 4.4 g/dL (3.5-5.1); Alkaline Phosphatase 76 U/L (38-126); Anion Gap 9 mmol/L (4-12); Aspartate Amino Transferase 28 U/L (14-36); Bilirubin,Total 0.8 mg/dL (0.2-1.3); Blood Urea Nitrogen 16 mg/dL (7-17); Calcium 8.9 mg/dL (8.4-10.2); Carbon Dioxide 24 mmol/L (22-30); Chloride 105 mmol/L (98-107); Estimated CRCL calculation 62 ml/min; Estimated Glomerular Filt Rate > 60; Glucose 134 mg/dL (65-110); Lipase 47 U/L (23-300); Potassium 3.7 mmol/L (3.4-5.0); Sodium 138 mmol/L (137-145); Total Protein 7.1 g/dL (6.3-8.2)
[2025-03-15] MEDS: SCOPOLAMINE 1 MG PATCH 1 PATCH TRANSDERM (15:55)
[2025-03-15] MEDS: MECLIZINE HCL 25 MG TABLET PO (15:55)
--- NOTE | 2025-03-15 16:16 | ED.GENADULT ---
HPI - General Adult General Chief complaint: Nausea/Vomiting/Diarrhea Stated complaint: N/V, dizzy History of Present Illness HPI narrative: This is a 74-year-old female presenting with vertigo. Patient says she woke up this morning at 6:00 a.m. with fullness and hearing loss in right ear. At 9:00 a.m. she developed persistent vertigo. Patient denies double vision difficulty speaking swallowing or loss of coordination. She is finding it difficult to walk due to the vertigo. She denies any falls. She is on blood thinners. Related Data Home Medications ?Medication ?Instructions ?Recorded ?Confirmed ?Last Taken ?Type carvedilol 25 mg tablet 25 mg PO Q12H 08/26/22 10/27/24 08/02/24 History losartan 100 mg tablet 100 mg PO DAILY 08/26/22 10/27/24 08/01/24 History amiodarone 200 mg tablet 100 mg PO DAILY 09/18/22 10/27/24 08/02/24 History cartilage 40 mg-collagen II-boron 1 tablet PO DAILY 07/25/24 10/27/24 08/01/24 History 5 mg-hyaluronate sod 3.3 mg tablet (Move Free Ultra Triple Action (boron)) Allergies Allergy/AdvReac Type Severity Reaction Status Date / Time dronedarone (From [facility]) Allergy Shakiness Verified 03/15/25 14:41 codeine AdvReac Intermediate NAUSEA, Verified 03/15/25 14:41 VOMITING AND HEADACHE. 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 Family history of malignant neoplasm of digestive organs Atrial fibrillation Hypertension Arthritis Social History Social History Smoking status: Never smoker Second hand tobacco smoke exposure: No Alcohol intake: current Drinks per week: 1 Alcohol use details: DIANA Substance use: never Substance use type: does not use Do You Feel Safe in your Home?: Yes Lack of Transportation: No Lack of Food: Never True Current Housing: I Have Housing Concerned About Future Housing: No Difficulty Paying Gas/Electric Bills: No Difficulty Paying for Meds: No Currently Unemployed: No Education: Associate Degree Difficulty w/ Childcare or Family Care: No Living arrangements: alone Occupation/Education: retired Gender identity (if verbalized by the patient): Female Sexual Orientation (if Verbalized by the Patient): Straight or Heterosexual Spiritual care concerns: No Exam Narrative: APPEARANCE: No apparent distress. Head: Rightward beating nystagmus at rest, TMs normal bilaterally. EYES: EOMI, NOSE: Atraumatic NECK: Trachea midline RESPIRATORY: No increased rate of breathing clear to auscultation CARDIOVASCULAR: RRR, peripheral edema ABDOMINAL: Non-distended soft non-tender MUSCULOSKELETAl: No obvious deformities NEURO: Alert. Rightward beating nystagmus at rest Cranial nerves 2-12 grossly intact. Sensation light touch, motor function cerebellar function intact for 4 extremities. SKIN:: Warm, dry. Normal color PSYCHIATRIC: Normal affect HINTS Exam: Head impulse test w/ corrective saccade to the right/affected ear. Test of skew negative. Nystagmus unidirectional to the Right. This is supportive of a peripheral lesion. Course Vital Signs Vital signs: Vital Signs Pulse Rate 62 03/15/25 14:27 Respiratory Rate 16 03/15/25 14:27 Blood Pressure 167/72 H 03/15/25 14:27 Pulse Oximetry 99 03/15/25 14:27 Oxygen Delivery Room Air 03/15/25 14:27 Pulse Rate 62 03/15/25 14:27 Respiratory Rate 16 03/15/25 14:27 Blood Pressure 167/72 H 03/15/25 14:27 Pulse Oximetry 99 03/15/25 14:27 Oxygen Delivery Room Air 03/15/25 14:27 Medical Decision Making [facility] Narrative Medical decision making narrative: -Course: 74-year-old female presenting with right ear fullness, hearing loss and vertigo. No other neurologic deficits. Last known normal would have been last night as her symptoms started at 6:00 a.m.. On exam she has unilateral nystagmus to the right. She has a corrective saccade on the head impulse test supporting a peripheral lesion, and a negative test of skew. Her CTA was unremarkable. She received meclizine,scopolamine for dizziness. She received Valium for claustrophobia to get into the CT scanner. Presentation most consistent with vestibular neuritis/labyrinthitis. She received meclizine/scopolamine for dizziness. She received Valium for claustrophobia to get into the CT scanner. Upon re-evaluation her nystagmus has resolved. However she is still dizzy. She is on Eliquis and falls can be catastrophic. She will be admitted the hospital for further management of her vertigo. Neurology consulted. -DDX includes but is not limited to:Vestibular neuritis/labyrinthitis, BPPV, Vital Signs Vital Signs: Vital Signs Pulse Rate 62 03/15/25 14:27 Respiratory Rate 16 03/15/25 14:27 Blood Pressure 167/72 H 03/15/25 14:27 Pulse Oximetry 99 03/15/25 14:27 Oxygen Delivery Room Air 03/15/25 14:27 Pulse Rate 62 03/15/25 14:27 Respiratory Rate 16 03/15/25 14:27 Blood Pressure 167/72 H 03/15/25 14:27 Pulse Oximetry 99 03/15/25 14:27 Oxygen Delivery Room Air 03/15/25 14:27 Lab Data 03/15/25 15:01 03/15/25 15:01 Labs: Lab Results 03/15/25 03/15/25 Range/Units 15:01 15:14 WBC 11.5 H (4.5-10.0) K/mm3 RBC 4.55 (4.2-5.4) M/mm3 Hgb 13.7 (12.0-15.0) g/dL Hct 41.3 (37.0-47.0) % MCV 90.8 (80-100) fl MCH 30.1 (26-34) pg MCHC 33.2 (32-36) g/dl RDW 12.6 (11.5-14.5) % Plt Count 267 (150-375) k/mm3 MPV 9.3 (7.4-10.4) fl Immature Gran % (Auto) 0.4 (0-0.5) % Neut % (Auto) 86.2 H (45.5-73.1) % Lymph % (Auto) 8.4 L (18.3-44.2) % [place] % (Auto) 4.7 (2.6-8.5) % Eos % (Auto) 0.1 (0-4.4) % Baso % (Auto) 0.2 (0.2-1.2) % Lymph # (Auto) 0.96 (0.9-3.2) K/mm3 [place] # (Auto) 0.5 (0.1-0.6) K/mm3 Eos # (Auto) 0.0 (0-0.3) K/mm3 Baso # (Auto) 0.0 (0.0-0.1) K/mm3 Abs Immat Gran (auto) 0.05 H (0.00-0.031) K/mm3 Absolute Neuts (auto) 9.9 H (1.3-6.7) K/mm3 Absolute Nucleated RBC 0.000 (0.0-0.012) K/mm3 Nucleated RBC % 0.0 (0.0-0.2) % Sodium 138 (137-145) mmol/L Potassium 3.7 (3.4-5.0) mmol/L Chloride 105 (98-107) mmol/L Carbon Dioxide 24 (22-30) mmol/L Anion Gap 9 (4-12) mmol/L BUN 16 (7-17) mg/dL Creatinine 0.65 L (0.7-1.0) mg/dL Estim Creat Clear Calc 62 ml/min Estimated GFR > 60 (59 - ) Glucose 134 H (65-110) mg/dL Calcium 8.9 (8.4-10.2) mg/dL Total Bilirubin 0.8 (0.2-1.3) mg/dL AST 28 (14-36) U/L ALT 20 (6-35) U/L Alkaline Phosphatase 76 (38-126) U/L Total Protein 7.1 (6.3-8.2) g/dL Albumin 4.4 (3.5-5.1) g/dL Lipase 47 (23-300) U/L Urine Color Yellow (Yellow) Urine Appearance Clear (Clear) Urine pH 7.5 (5.0-9.0) Ur Specific [place] 1.012 (1.001-1.035) Urine Protein Negative (Negative) mg/dL Urine Glucose (UA) Negative (Negative) mg/dL Urine Ketones 1+ H (Negative) mg/dL Ur Blood (Man) Non-hemolyzed trace H (Negative) Urine Nitrate Negative (Negative) Urine Bilirubin Negative (Negative) Urine Urobilinogen 1.0 (<2.0) mg/dL Leukocyte Esterase Rfl Negative (Negative) AMANUEL/UL Urine RBC 6-10 H (0-2) /hpf Urine WBC 0-5 (0-3) /hpf Ur Squamous Epith Cells None seen (Few) /hpf Urine Bacteria None seen /hpf Urine Casts 0-2 Discharge Plan Discharge Clinical Impression: Acute vestibular neuritis, Vertigo Patient Disposition: Still a Patient Condition: Stable Patient Language: Norwegian Prescriptions: No Action losartan 100 mg tablet 100 mg PO DAILY carvedilol 25 mg tablet 25 mg PO Q12H Rx Instructions: must administer with a meal/food amiodarone 200 mg tablet 100 mg PO DAILY [id number] [Move Free Ultra Triple Action] 40-5-3.3 mg tablet 1 tablet PO DAILY apixaban 5 mg tablet 5 mg PO BID Qty: 200 1RF potassium chloride [Klor-Con 10] 10 mEq tablet extended release 10 meq PO DAILY Qty: 100 1RF oxybutynin chloride 5 mg tablet extended release 24hr 5 mg PO DAILY Qty: 30 0RF amlodipine 10 mg tablet 10 mg PO DAILY Qty: 100 1RF rosuvastatin 5 mg tablet 5 mg PO DAILY Qty: 100 1RF hydrochlorothiazide 25 mg tablet 25 mg PO DAILY Qty: 100 1RF Follow-up/Referrals: Avtar Frausto MD [Primary Care Provider, Family Practice]
[2025-03-15] MEDS: diazePAM INJ (*CRX) 10 MG/2 ML SYRINGE 5 MG IV PUSH (17:06)
--- NOTE | 2025-03-15 18:23 | PM.IMHP ---
H&P: HPI History of Present Illness Date/Time: 03/15/25 18:23 Chief Complaint: Dizziness, N/V Narrative: 74 y/o F with PMH of atrial fibrillation on anticoagulation, hypertension, CVA, and hyperlipidemia presents here with dizziness, nausea, and vomiting. The patient presents here with significant dizziness on 03/15 from home via EMS. She reports the dizziness woke up from her sleep around 9:00 a.m.. Last known well on 03/14. She reports the dizziness was so significant that she developed nausea and vomiting. Dizziness worsened with movement and ambulation. She denies associated focal weakness, focal numbness, dysphagia, facial droop, dysarthria, or vision changes. She has a history of atrial fibrillation and is on chronic anticoagulation, reports compliance for blood thinners. She denies any recent viral illness. Does report she has been having seasonal allergies/rhinorrhea but this is typical for her around this time of year. Initial VS at presentation: HR 62, RR 16, 167/72, and 99% on RA. ED workup showed: WBC 11.5, no anemia, no significant electrolyte derangements, creatinine 0.65 and GFR >60, glucose 134, and UA showed 1+ ketones/non hemolyzed trace blood, 6-10 RBC otherwise unremarkable. Head/neck CTA showed no acute intracranial abnormality, chronic right frontal lobe infarction, no significant vascular abnormality of the head or neck. 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 Family history of malignant neoplasm of digestive organs Atrial fibrillation Hypertension Arthritis Surgical History Surgical History History of lumpectomy breast, benign Family History Family History (Updated 03/15/25 @ 21:50 by Bee Robison RN) Mother Colon cancer Father Parkinson disease Social History Social History Smoking status: Never smoker Second hand tobacco smoke exposure: No Alcohol intake: current Drinks per week: 1 Alcohol use details: DIANA Substance use: never Substance use type: does not use Do You Feel Safe in your Home?: Yes Lack of Transportation: No Lack of Food: Never True Current Housing: I Have Housing Concerned About Future Housing: No Difficulty Paying Gas/Electric Bills: No Difficulty Paying for Meds: No Currently Unemployed: No Education: Associate Degree Difficulty w/ Childcare or Family Care: No Living arrangements: alone Occupation/Education: retired Gender identity (if verbalized by the patient): Female Sexual Orientation (if Verbalized by the Patient): Straight or Heterosexual Spiritual care concerns: No Meds Home Medications and Allergies Home Medications ?Medication ?Instructions ?Recorded ?Confirmed ?Type carvedilol 25 mg tablet 25 mg PO Q12H 08/26/22 03/15/25 History losartan 100 mg tablet 100 mg PO HS 08/26/22 03/15/25 History amiodarone 200 mg tablet 100 mg PO DAILY 09/18/22 03/15/25 History cartilage 40 mg-collagen II-boron 1 tablet PO DAILY 07/25/24 03/15/25 History 5 mg-hyaluronate sod 3.3 mg tablet (Move Free Ultra Triple Action (boron)) apixaban 5 mg tablet 5 mg PO BID #200 tabs 09/06/24 03/15/25 Rx amlodipine 10 mg tablet 10 mg PO DAILY #100 tabs 03/01/25 03/15/25 Rx hydrochlorothiazide 25 mg tablet 25 mg PO DAILY #100 tabs 03/01/25 03/15/25 Rx rosuvastatin 5 mg tablet 5 mg PO HS 03/15/25 03/15/25 History Allergies Allergy/AdvReac Type Severity Reaction Status Date / Time dronedarone (From MultaTripda) Allergy Shakiness Verified 03/15/25 14:41 codeine AdvReac Intermediate NAUSEA, Verified 03/15/25 14:41 VOMITING AND HEADACHE. TAPE Allergy Mild SKIN Uncoded 10/27/24 09:32 IRRITATION Vital Signs Vital Signs - 24 hr 03/15/25 14:27 Pulse Rate 62 Respiratory Rate 16 Blood Pressure 167/72 H Pulse Oximetry 99 Oxygen Delivery Room Air Exam Const: General: comfortable and no acute distress Other: , female, elderly, nontoxic appearance HENMT: Face/Nose/Sinus: Normal nares present Mouth: Yes moist mucous membranes Eyes: General: appearance normal, both eyes and all related structures Sclera: sclerae normal Pupils: Equal, round and reactive pupils present EOM: EOMs intact bilaterally Other: Horizontal nystagmus noted. Resp: Effort & Inspection: normal respiratory effort Auscultation: clear to auscultation bilaterally Cardio: Rate: regular rate Rhythm: regular rhythm Other: S1-S2 present without murmur, rub, ectopy GI: Other: Abdomen soft, nondistended, nontender. Normoactive bowel sounds in all quadrants. Skin: General skin exam: normal color and no rashes or lesions noted Wounds: no wounds Neuro: Speech: normal speech Motor exam (neuro): 5/5 motor strength present throughout Sensory Exam: normal sensation Other: A&O x4, NIHSS 0. Horizontal nystagmus noted. Extrem: General: normal to inspection Psych: Mental Status: mental status grossly normal Affect: normal affect Other: Good insight and judgment, pleasant H&P: Results Labs Labs: Short CBC 03/15/25 Range/Units 15:01 WBC 11.5 H (4.5-10.0) K/mm3 Hgb 13.7 (12.0-15.0) g/dL Hct 41.3 (37.0-47.0) % Plt Count 267 (150-375) k/mm3 BMP 03/15/25 15:01 Sodium 138 Potassium 3.7 Chloride 105 Carbon Dioxide 24 BUN 16 Creatinine 0.65 L Glucose 134 H Calcium 8.9 Liver Function 03/15/25 Range/Units 15:01 Total Bilirubin 0.8 (0.2-1.3) mg/dL AST 28 (14-36) U/L ALT 20 (6-35) U/L Alkaline Phosphatase 76 (38-126) U/L Albumin 4.4 (3.5-5.1) g/dL Urine 03/15/25 Range/Units 15:14 Urine Color Yellow (Yellow) Urine Appearance Clear (Clear) Urine pH 7.5 (5.0-9.0) Ur Specific Holder 1.012 (1.001-1.035) Urine Protein Negative (Negative) mg/dL Urine Glucose (UA) Negative (Negative) mg/dL Assessment and Plan Assessment and plan (1) Acute vestibular neuritis: Qualifiers: Laterality: right Qualified Code(s): H81.21 - Vestibular neuronitis, right ear Code(s): H81.20 - Vestibular neuronitis, unspecified ear Status: Acute Assessment and Plan: Presented on 03/15 with significant dizziness, right ear fullness, and right ear hearing loss that did not resolve with meclizine, scopolamine, or Valium. Last known well on 03/14. Discovery of symptoms at 6:00 a.m. on 03/15. CTA of the head/neck showed no acute findings or significant vascular abnormality, chronic right frontal lobe infarction noted. Exam in the ED showed unilateral nystagmus to the right, a corrective saccade on the head impulse test supporting a peripheral lesion, and a negative test of skew. Admitted for neurology consultation and due to significant concern for falls secondary to vertigo as she is on Eliquis. Presentation at this time most consistent with vestibular neuritis/labyrinthitis. - patient does have risk factors for CVA including HTN and HLD, check MRI to r/o - start meclizine prn, Valium p.r.n., and Benadryl idalia HS in event patient's symptoms are related to vestibular neuritis/labyrinthitis. Given this particularly presents post-viral, will check viral PCR. - antiemetic prn - fall precautions - neurology consulted At time of evaluation, the patient is reporting modest improvement in her dizziness with administration of diazepam, meclizine, and scopolamine patch. Initially so dizzy she had nausea and vomiting. Now dizziness is significantly last at rest and only worsens with movements. (2) Atrial fibrillation: Qualifiers: Atrial fibrillation type: paroxysmal Qualified Code(s): I48.0 - Paroxysmal atrial fibrillation Code(s): I48.91 - Unspecified atrial fibrillation Status: Chronic Assessment and Plan: - continue amiodarone and Eliquis (3) HLD (hyperlipidemia): Qualifiers: Hyperlipidemia type: pure hypercholesterolemia Qualified Code(s): E78.00 - Pure hypercholesterolemia, unspecified Code(s): E78.5 - Hyperlipidemia, unspecified Status: Chronic Assessment and Plan: - continue rosuvastatin daily (4) Hypertension: Qualifiers: Hypertension type: primary hypertension Qualified Code(s): I10 - Essential (primary) hypertension Code(s): I10 - Essential (primary) hypertension Status: Chronic Assessment and Plan: - chronic, currently 167/72, stable - continue home medications: Amlodipine, Coreg, HCTZ, losartan - monitor Plan Glucose 134 upon admission. Checking A1C. Diet: Heart healthy GI Prophylaxis: N/a DVT Prophylaxis: SCDs IV fluids: LR 150 mL/hour x1 L Lines/Tubes: Peripheral IV Code Status: Full code Quality VTE Prophylaxis VTE prophylaxis: mechanical ordered Hospitalist [facility] Advance Care Plan I have confirmed that the patient's Advanced Care Plan is present, code status is documented, or surrogate decision maker is listed in patient medical record.: Yes Medication Reconciliation I have utilized all available resources to obtain, update and review the patients current medications (includes all prescriptions, OTC, herbals, cannabis, and nutritional supplements).: Yes
[2025-03-15] MEDS: LACTATED RINGERS 1,000 ML 150 ML IV CONT (19:00)
--- NOTE | 2025-03-15 21:32 | ADMGEN ---
This patient, Brianne Noble, was admitted to Medical Room 348-01. Patient/family oriented to hospital policies and general routines including ID bracelet, bed and alarms, visiting hours, pain management, procedures, bathroom and other care routines, personal items, smoking policy, room service/diet, and visiting hours. Information on how to activate the Rapid Response Team has been discussed. Patient/Family are encouraged to report perceived risks to care and to ask questions if they do not understand what they are told or what they should do.
[2025-03-15] MEDS: ACETAMINOPHEN 325 MG TABLET 650 MG PO (22:13)
[2025-03-15 22:38] LABS: Influenza A QL RT-PCR Negative (Negative); Influenza B QL RT-PCR Negative (Negative); RSV RNA, RT-PCR Negative (Negative); SARS-CoV-2 RNA PCR Negative (Negative)
[2025-03-15] MEDS: LOSARTAN POTASSIUM 100 MG TABLET PO (22:38)
[2025-03-15] MEDS: APIXABAN 5 MG TABLET PO (22:38)
[2025-03-15] MEDS: ROSUVASTATIN 5 MG TABLET PO (22:38)
[2025-03-16] VITALS (12 sets, daily range): BP systolic 123–133; BP diastolic 59–71; PULSE 54–68; RESP 14–18; TEMP 35.9–36.9; O2SAT 92–94
[2025-03-16] MEDS: ONDANSETRON INJ 4 MG/2 ML VIAL IV PUSH (04:35)
[2025-03-16] MEDS: MECLIZINE HCL 12.5 MG TABLET PO ×3 (04:35→17:03)
[2025-03-16 06:13] LABS: Hematocrit 39.8 % (37.0-47.0); Hemoglobin 13.0 g/dL (12.0-15.0); Immature Granulocyte Percent A 0.3 % (0-0.5); Lymphocytes Absolute Auto 1.12 K/mm3 (0.9-3.2); Mean Corpuscular HGB Conc 32.7 g/dl (32-36); Mean Corpuscular Hemoglobin 29.6 pg (26-34); Mean Corpuscular Volume 90.7 fl (80-100); Nucleated Red Blood Cells Absolute Auto 0.000 K/mm3 (0.0-0.012); Nucleated Red Blood Cells Perc 0.0 % (0.0-0.2); Platelet Count Result 274 k/mm3 (150-375); Red Blood Count 4.39 M/mm3 (4.2-5.4); White Blood Count 7.2 K/mm3 (4.5-10.0)
[2025-03-16 06:26] LABS: Hemoglobin A1C 5.6 % (<5.7)
[2025-03-16 06:37] LABS: Anion Gap 8 mmol/L (4-12); Blood Urea Nitrogen 19 mg/dL (7-17); Calcium 9.1 mg/dL (8.4-10.2); Carbon Dioxide 25 mmol/L (22-30); Chloride 101 mmol/L (98-107); Estimated CRCL calculation 46 ml/min; Estimated Glomerular Filt Rate > 60; Glucose 91 mg/dL (65-110); Potassium 3.2 mmol/L (3.4-5.0); Sodium 134 mmol/L (137-145)
[2025-03-16] MEDS: APIXABAN 5 MG TABLET PO ×2 (08:54→21:43)
[2025-03-16] MEDS: AMIODARONE HCL 100 MG TABLET PO (08:56)
--- NOTE | 2025-03-16 11:26 | P.PNIM_ITS ---
Progress Note: A&P Assessment and Plan (1) Acute vestibular neuritis: Qualifiers: Laterality: right Qualified Code(s): H81.21 - Vestibular neuronitis, right ear Code(s): H81.20 - Vestibular neuronitis, unspecified ear Status: Acute Assessment and Plan: Presented on 03/15 with significant dizziness, right ear fullness, and right ear hearing loss that did not resolve with meclizine, scopolamine, or Valium. Last known well on 03/14. Discovery of symptoms at 6:00 a.m. on 03/15. CTA of the head/neck showed no acute findings or significant vascular abnormality, chronic right frontal lobe infarction noted. Exam in the ED showed unilateral nystagmus to the right, a corrective saccade on the head impulse test supporting a peripheral lesion, and a negative test of skew. Admitted for neurology consultation and due to significant concern for falls secondary to vertigo as she is on Eliquis. Presentation at this time most consistent with vestibular neuritis/labyrinthitis. - patient does have risk factors for CVA including HTN and HLD, check MRI to r/o - start meclizine prn, Valium p.r.n., and Benadryl idalia HS in event patient's symptoms are related to vestibular neuritis/labyrinthitis. Given this particularly presents post-viral, will check viral PCR. - antiemetic prn - fall precautions - neurology consulted At time of evaluation, the patient is reporting improvement with her dizziness and nausea. Await MRI to r/o acute CVA. PT to evaluate patient and educate on Branden maneuver. Debrox gtts for cerumen impaction on left. (2) Atrial fibrillation: Qualifiers: Atrial fibrillation type: paroxysmal Qualified Code(s): I48.0 - Paroxysmal atrial fibrillation Code(s): I48.91 - Unspecified atrial fibrillation Status: Chronic Assessment and Plan: - continue amiodarone and Eliquis (3) HLD (hyperlipidemia): Qualifiers: Hyperlipidemia type: pure hypercholesterolemia Qualified Code(s): E78 .00 - Pure hypercholesterolemia, unspecified Code(s): E78.5 - Hyperlipidemia, unspecified Status: Chronic Assessment and Plan: - continue rosuvastatin daily (4) Hypertension: Qualifiers: Hypertension type: primary hypertension Qualified Code(s): I10 - Essential (primary) hypertension Code(s): I10 - Essential (primary) hypertension Status: Chronic Assessment and Plan: - chronic, currently 132/70, stable - continue home medications: Amlodipine, Coreg, HCTZ, losartan - monitor Plan Glucose 134 upon admission. A1C 5.6 Diet: Heart healthy GI Prophylaxis: N/a DVT Prophylaxis: SCDs IV fluids: LR 150 mL/hour x1 L Lines/Tubes: Peripheral IV Code Status: Full code Subjective Date/time seen: 03/16/25 11:26 Interval history: 74 y/o F with PMH of atrial fibrillation on anticoagulation, hypertension, CVA, and hyperlipidemia presents here with dizziness, nausea, and vomiting. CTA head/neck no acute intracranial abnormality, chronic right frontal lobe infarction, no significant vascular abnormality of the head or neck. Today reporting improvement in dizziness and nausea. Still has decreased hearing to the right ear and feeling of fullness. Review of Systems Review of Systems: All systems reviewed & are unremarkable except as noted in HPI and below Eyes: Comments: Nystagmus has resolved ENT: Reports system reviewed and no additional complaints, except as documented and Reports tinnitus Comments: Feeling of fullness and decreased hearing in right ear Neurologic: Reports vertigo Exam Const: General: comfortable and no acute distress Other: , female, elderly, nontoxic appearance HENMT: Ears: TM abnormal with fluid behind the TM on the right, with loss of landmarks on the right and obstructed by cerumen on the left Face/Nose/Sinus: Normal nares present Mouth: Yes moist mucous membranes Eyes: General: appearance normal, both eyes and all related structures Sclera: sclerae normal Pupils: Equal, round and reactive pupils present EOM: EOMs intact bilaterally Neck: Neck: supple and no JVD Resp: Effort & Inspection: normal respiratory effort Auscultation: clear to auscultation bilaterally Cardio: Rate: regular rate Rhythm: regular rhythm Other: S1-S2 present without murmur, rub, ectopy GI: Other: Abdomen soft, nondistended, nontender. Normoactive bowel sounds in all quadrants. Skin: General skin exam: normal color and no rashes or lesions noted Wounds: no wounds Neuro: Speech: normal speech Motor exam (neuro): 5/5 motor strength present throughout Sensory Exam: normal sensation Other: A&O x4, NIHSS 0. Extrem: General: normal to inspection Psych: Mental Status: mental status grossly normal Affect: normal affect Other: Good insight and judgment, pleasant Objective Data Vital Signs Vital Signs: Vital Signs - 24 hr 03/15/25 14:27 03/15/25 15:59 03/15/25 16:02 Temperature Pulse Rate 62 64 64 Respiratory Rate 16 18 16 Blood Pressure 167/72 H 165/77 H 166/73 H Pulse Oximetry 99 95 96 Oxygen Delivery Room Air 03/15/25 16:17 03/15/25 18:47 03/15/25 21:00 Temperature Pulse Rate 66 72 65 Respiratory Rate 16 14 18 Blood Pressure 165/77 H 160/69 H 160/81 H Pulse Oximetry 96 98 99 Oxygen Delivery 03/15/25 22:00 03/15/25 22:38 03/16/25 04:00 Temperature 98.0 F Pulse Rate 70 71 57 L Respiratory Rate 20 Blood Pressure 171/83 H Pulse Oximetry 97 Oxygen Delivery 03/16/25 04:36 03/16/25 08:00 03/16/25 08:55 Temperature 98.5 F Pulse Rate 54 L 61 Respiratory Rate 18 Blood Pressure 132/70 Pulse Oximetry 94 Oxygen Delivery Room Air 03/16/25 08:56 Temperature Pulse Rate 63 Respiratory Rate Blood Pressure Pulse Oximetry Oxygen Delivery Intake/Output Intake/Output: Intake & Output 03/13/25 03/14/25 03/15/25 03/16/25 23:59 23:59 23:59 23:59 Intake Total 386 Balance 386 Meds/Results Medications: Active Medications Generic Name Dose Route Start Last Admin Trade Name Freq PRN Reason Stop Dose Admin Acetaminophen 650 mg 03/15/25 18:31 03/15/25 22:13 Acetaminophen 325 Mg Tablet PO 650 mg Q4H PRN Administration Mild Pain (1-3) or Fever Amiodarone HCl 100 mg 03/16/25 08:00 03/16/25 08:56 Amiodarone Hcl 100 Mg Tablet PO 100 mg DAILY@0800 IDALIA Administration Amlodipine Besylate 10 mg 03/16/25 09:00 03/16/25 08:55 Amlodipine Besylate 10 Mg Tablet PO 10 mg DAILY IDALIA Administration Apixaban 5 mg 03/15/25 22:30 03/16/25 08:54 Apixaban 5 Mg Tablet PO 5 mg Q12HR IDALIA Administration Bisacodyl 5 mg 03/15/25 18:31 Bisacodyl 5 Mg Tablet Ec PO DAILY PRN Constipation Carvedilol 25 mg 03/15/25 22:35 03/16/25 08:55 Carvedilol 25 Mg Tablet PO 25 mg Q12HR IDALIA Administration Diazepam 5 mg 03/15/25 20:46 Diazepam (*Crx) 5 Mg Tablet PO BID PRN Dizziness Diphenhydramine HCl 25 mg 03/15/25 21:00 03/15/25 22:03 Diphenhydramine Hcl Inj 50 Mg/Ml Vial IV PUSH 25 mg HS IDALIA Administration Hydrochlorothiazide 25 mg 03/16/25 09:00 03/16/25 08:54 Hydrochlorothiazide 25 Mg Tablet PO 25 mg DAILY IDALIA Administration Losartan Potassium 100 mg 03/15/25 22:35 03/15/25 22:38 Losartan Potassium 100 Mg Tablet PO 100 mg HS IDALIA Administration Meclizine HCl 12.5 mg 03/15/25 19:08 03/16/25 09:04 Meclizine Hcl 12.5 Mg Tablet PO 12.5 mg QID PRN Administration Dizziness Ondansetron HCl 4 mg 03/15/25 18:31 03/16/25 04:35 Ondansetron Inj 4 Mg/2 Ml Vial IV PUSH 4 mg Q6H PRN Administration Nausea And Vomiting Rosuvastatin Calcium 5 mg 03/15/25 22:35 03/15/25 22:38 Rosuvastatin 5 Mg Tablet PO 5 mg HS IDALIA Administration Radiology Results: ITS Impressions Head/Neck CTA 03/15/25 17:19 IMPRESSION: 1.: No acute intracranial abnormality. Chronic right frontal lobe infarction. 2: No significant vascular abnormality of the head or neck. Labs Labs: Laboratory Results - last 24 hr 03/15/25 03/15/25 03/15/25 15:01 15:14 21:53 WBC 11.5 H RBC 4.55 Hgb 13.7 Hct 41.3 MCV 90.8 MCH 30.1 MCHC 33.2 RDW 12.6 Plt Count 267 MPV 9.3 Immature Gran % (Auto) 0.4 Neut % (Auto) 86.2 H Lymph % (Auto) 8.4 L [place] % (Auto) 4.7 Eos % (Auto) 0.1 Baso % (Auto) 0.2 Lymph # (Auto) 0.96 [place] # (Auto) 0.5 Eos # (Auto) 0.0 Baso # (Auto) 0.0 Abs Immat Gran (auto) 0.05 H Absolute Neuts (auto) 9.9 H Absolute Nucleated RBC 0.000 Nucleated RBC % 0.0 Sodium 138 Potassium 3.7 Chloride 105 Carbon Dioxide 24 Anion Gap 9 BUN 16 Creatinine 0.65 L Estim Creat Clear Calc 62 Estimated GFR > 60 Glucose 134 H Hemoglobin A1c Calcium 8.9 Total Bilirubin 0.8 AST 28 ALT 20 Alkaline Phosphatase 76 Total Protein 7.1 Albumin 4.4 Lipase 47 Urine Color Yellow Urine Appearance Clear Urine pH 7.5 Ur Specific [place] 1.012 Urine Protein Negative Urine Glucose (UA) Negative Urine Ketones 1+ H Ur Blood (Man) Non-hemolyzed trace H Urine Nitrate Negative Urine Bilirubin Negative Urine Urobilinogen 1.0 Leukocyte Esterase Rfl Negative Urine RBC 6-10 H Urine WBC 0-5 Ur Squamous Epith Cells None seen Urine Bacteria None seen Urine Casts 0-2 Influenza A (RT-PCR) Negative Influenza B (RT-PCR) Negative RSV (RT-PCR) Negative SARS-CoV-2 RNA (RT-PCR) Negative 03/16/25 05:33 WBC 7.2 RBC 4.39 Hgb 13.0 Hct 39.8 MCV 90.7 MCH 29.6 MCHC 32.7 RDW 12.5 Plt Count 274 MPV 9.5 Immature Gran % (Auto) 0.3 Neut % (Auto) 74.9 H Lymph % (Auto) 15.5 L [place] % (Auto) 8.9 H Eos % (Auto) 0.1 Baso % (Auto) 0.3 Lymph # (Auto) 1.12 [place] # (Auto) 0.6 Eos # (Auto) 0.0 Baso # (Auto) 0.0 Abs Immat Gran (auto) 0.02 Absolute Neuts (auto) 5.4 Absolute Nucleated RBC 0.000 Nucleated RBC % 0.0 Sodium 134 L Potassium 3.2 L Chloride 101 Carbon Dioxide 25 Anion Gap 8 BUN 19 H Creatinine 0.89 Estim Creat Clear Calc 46 Estimated GFR > 60 Glucose 91 Hemoglobin A1c 5.6 Calcium 9.1 Total Bilirubin AST ALT Alkaline Phosphatase Total Protein Albumin Lipase Urine Color Urine Appearance Urine pH Ur Specific [place] Urine Protein Urine Glucose (UA) Urine Ketones Ur Blood (Man) Urine Nitrate Urine Bilirubin Urine Urobilinogen Leukocyte Esterase Rfl Urine RBC Urine WBC Ur Squamous Epith Cells Urine Bacteria Urine Casts Influenza A (RT-PCR) Influenza B (RT-PCR) RSV (RT-PCR) SARS-CoV-2 RNA (RT-PCR) Quality VTE Prophylaxis VTE prophylaxis: mechanical ordered and pharmacologic ordered Hospitalist [facility] Advance Care Plan I have confirmed that the patient's Advanced Care Plan is present, code status is documented, or surrogate decision maker is listed in patient medical record.: Yes Medication Reconciliation I have utilized all available resources to obtain, update and review the patients current medications (includes all prescriptions, OTC, herbals, cannabis, and nutritional supplements).: Yes
[2025-03-16] MEDS: LORATADINE 10 MG TABLET PO (17:03)
[2025-03-16] MEDS: CARBAMIDE PEROXIDE 6.5% OT SOLN 15 ML BTL 5 DROP LEFT EAR (17:03)
--- NOTE | 2025-03-16 17:22 | WPDNEURCNPN ---
Assessment and Plan Assessment and plan (1) Vertigo: Code(s): R42 - Dizziness and giddiness Status: Acute (2) Acute vestibular neuritis: Qualifiers: Laterality: right Qualified Code(s): H81.21 - Vestibular neuronitis, right ear Code(s): H81.20 - Vestibular neuronitis, unspecified ear Status: Acute (3) Atrial fibrillation: Qualifiers: Atrial fibrillation type: paroxysmal Qualified Code(s): I48.0 - Paroxysmal atrial fibrillation Code(s): I48.91 - Unspecified atrial fibrillation Status: Chronic (4) Hypertension: Qualifiers: Hypertension type: primary hypertension Qualified Code(s): I10 - Essential (primary) hypertension Code(s): I10 - Essential (primary) hypertension Status: Chronic Plan An MRI of the brain is pending and a it is important to look into the brainstem since the symptoms can overlap with brainstem pathology. CT scan of the brain and CT angiogram of head and neck shows old infarct in the right frontal area. No brainstem findings were noted however MRI would be more sensitive in identification of such abnormality. She has history of atrial fibrillation and she is on Eliquis. The hearing in the right ear is also decreased and that he has a new problem. One of the nursing staff mention to her about teaching her Branden maneuver and I have advised her to wait till we get the MRI done and certainly if she still symptomatic vestibular exercises May be helpful. Furthermore an ENT evaluation for right ear should be considered. Consult date: 03/16/25 HPI: Brianne Noble is a 74 year old female Who presented to the hospital with a history of sudden onset of nausea vomiting along with vertigo yesterday. She also has some decreased hearing on the right ear which feels heavy. She has history of atrial fibrillation and is currently on Eliquis. In the emergency room she was found to have normal neurological examination except for a right beating nystagmus and the ER physician did some testing and thought that she had her vestibular disease. CT scan of the brain as well as CT angiogram head and neck were performed which shows the old right frontal infarct. MRI of the brain has been requested is pending. In the meanwhile she is getting better from the vertigo but still the symptoms are not quite gone yet. She has not had any problems such as this in past. She denies any headache diplopia or difficulty speech or swallowing or any weakness in upper lower limbs. Review of Systems Review of Systems: There is no prior history of hearing loss but since yesterday she feels some heaviness and decreased hearing in the right ear. 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 HLD (hyperlipidemia) Diverticulosis Personal history of adenomatous and serrated colon polyps Other long-term (current) drug therapy Family history of malignant neoplasm of digestive organs Atrial fibrillation Hypertension Arthritis Surgical History Surgical History History of lumpectomy breast, benign Family History Family History (Updated 03/15/25 @ 21:50 by Bee Robison RN) Mother Colon cancer Father Parkinson disease Social History Social History Smoking status: Never smoker Second hand tobacco smoke exposure: No Alcohol intake: current Drinks per week: 1 Alcohol use details: DIANA Substance use: never Substance use type: does not use Do You Feel Safe in your Home?: Yes Lack of Transportation: No Lack of Food: Never True Current Housing: I Have Housing Concerned About Future Housing: No Difficulty Paying Gas/Electric Bills: No Difficulty Paying for Meds: No Currently Unemployed: No Education: Associate Degree Difficulty w/ Childcare or Family Care: No Living arrangements: alone Occupation/Education: retired Gender identity (if verbalized by the patient): Female Sexual Orientation (if Verbalized by the Patient): Straight or Heterosexual Spiritual care concerns: No Meds Home Medications and Allergies Home Medications ?Medication ?Instructions ?Recorded ?Confirmed ?Type carvedilol 25 mg tablet 25 mg PO Q12H 08/26/22 03/15/25 History losartan 100 mg tablet 100 mg PO HS 08/26/22 03/15/25 History amiodarone 200 mg tablet 100 mg PO DAILY 09/18/22 03/15/25 History cartilage 40 mg-collagen II-boron 1 tablet PO DAILY 07/25/24 03/15/25 History 5 mg-hyaluronate sod 3.3 mg tablet (Move Free Ultra Triple Action (boron)) apixaban 5 mg tablet 5 mg PO BID #200 tabs 09/06/24 03/15/25 Rx amlodipine 10 mg tablet 10 mg PO DAILY #100 tabs 03/01/25 03/15/25 Rx hydrochlorothiazide 25 mg tablet 25 mg PO DAILY #100 tabs 03/01/25 03/15/25 Rx rosuvastatin 5 mg tablet 5 mg PO HS 03/15/25 03/15/25 History Allergies Allergy/AdvReac Type Severity Reaction Status Date / Time dronedarone (From Inbox) Allergy Shakiness Verified 03/15/25 23:59 codeine AdvReac Intermediate NAUSEA, Verified 03/15/25 23:59 VOMITING AND HEADACHE. TAPE Allergy Mild SKIN Uncoded 10/27/24 09:32 IRRITATION Vital Signs Vital Signs - 24 hr 03/15/25 18:47 03/15/25 21:00 03/15/25 22:00 Temperature 98.0 F Pulse Rate 72 65 70 Respiratory Rate 14 18 20 Blood Pressure 160/69 H 160/81 H 171/83 H Pulse Oximetry 98 99 97 Oxygen Delivery 03/15/25 22:38 03/16/25 04:00 03/16/25 04:36 Temperature 98.5 F Pulse Rate 71 57 L 54 L Respiratory Rate 18 Blood Pressure 132/70 Pulse Oximetry 94 Oxygen Delivery 03/16/25 08:00 03/16/25 08:55 03/16/25 08:56 Temperature Pulse Rate 61 63 Respiratory Rate Blood Pressure Pulse Oximetry Oxygen Delivery Room Air 03/16/25 14:00 03/16/25 15:26 Temperature 96.7 F L Pulse Rate 58 L Respiratory Rate 16 Blood Pressure 123/59 L Pulse Oximetry 94 Oxygen Delivery Room Air Exam Const: General: cooperative, healthy appearing and comfortable HENMT: Head: atraumatic Mouth: Yes oropharynx normal Eyes: Alignment and Position: alignment normal and position normal EOM: EOMs intact bilaterally Neck: Neck: normal visual inspection and supple Resp: Effort & Inspection: normal respiratory effort Cardio: Heart sounds: S1 normal heart sound present and S2 normal heart sound present Skin: General skin exam: normal color Neuro: Cranial nerves: Yes CN's II-XII intact bilaterally, Yes facial symmetry and Yes Midline tongue present Cognition (Neuro): normal cognition Speech: normal speech Gait exam (Neuro): Normal gait present Sensory Exam: normal sensation Coordination: [id number] test normal and Normal rapid alternating movements of the distal upper extremity present (Neuro) Extrem: General: normal to inspection Psych: Appearance: well kempt Mental Status: mental status grossly normal Speech and movement: Normal speech and movement present Affect: normal affect Thought process: Normal thought process present Thought content: Yes Normal thought content present Insight: Good insight present (Psych) Judgement: Good judgement present (Psych) Results Labs 03/16/25 05:33 03/16/25 05:33 Labs: Short CBC 03/16/25 Range/Units 05:33 WBC 7.2 (4.5-10.0) K/mm3 Hgb 13.0 (12.0-15.0) g/dL Hct 39.8 (37.0-47.0) % Plt Count 274 (150-375) k/mm3 [facility] 03/16/25 05:33 Sodium 134 L Potassium 3.2 L Chloride 101 Carbon Dioxide 25 BUN 19 H Creatinine 0.89 Glucose 91 Calcium 9.1
[2025-03-16] MEDS: ROSUVASTATIN 5 MG TABLET PO (21:43)
[2025-03-16] MEDS: LOSARTAN POTASSIUM 100 MG TABLET PO (21:43)
[2025-03-17] VITALS (11 sets, daily range): BP systolic 121–155; BP diastolic 68–73; PULSE 50–74; RESP 16; TEMP 36.6–37.1; O2SAT 93–98
[2025-03-17] MEDS: AMIODARONE HCL 100 MG TABLET PO (08:40)
[2025-03-17] MEDS: APIXABAN 5 MG TABLET PO ×2 (08:40→21:24)
[2025-03-17] MEDS: LORATADINE 10 MG TABLET PO (08:41)
[2025-03-17] MEDS: CARBAMIDE PEROXIDE 6.5% OT SOLN 15 ML BTL 5 DROP LEFT EAR (08:41)
[2025-03-17] MEDS: MECLIZINE HCL 12.5 MG TABLET PO ×2 (08:42→17:47)
--- NOTE | 2025-03-17 10:45 | PM.IMPN ---
Progress Note: A&P Assessment and Plan (1) Acute vestibular neuritis: Qualifiers: Laterality: right Qualified Code(s): H81.21 - Vestibular neuronitis, right ear Code(s): H81.20 - Vestibular neuronitis, unspecified ear Status: Acute Assessment and Plan: Presented on 03/15 with significant dizziness, right ear fullness, and right ear hearing loss that did not resolve with meclizine, scopolamine, or Valium. Last known well on 03/14. Discovery of symptoms at 6:00 a.m. on 03/15. CTA of the head/neck showed no acute findings or significant vascular abnormality, chronic right frontal lobe infarction noted. Exam in the ED showed unilateral nystagmus to the right, a corrective saccade on the head impulse test supporting a peripheral lesion, and a negative test of skew. Admitted for neurology consultation and due to significant concern for falls secondary to vertigo as she is on Eliquis. Presentation at this time most consistent with vestibular neuritis/labyrinthitis. - patient does have risk factors for CVA including HTN and HLD, check MRI to r/o - start meclizine prn, Valium p.r.n., and Benadryl idalia HS in event patient's symptoms are related to vestibular neuritis/labyrinthitis. Given this particularly presents post-viral, will check viral PCR. - antiemetic prn - fall precautions - neurology consulted At time of evaluation, the patient is reporting continued improvement with her dizziness. Debrox gtts for cerumen impaction on left. MRI reveals no acute intracranial process. Consult to ENT. (2) Atrial fibrillation: Qualifiers: Atrial fibrillation type: paroxysmal Qualified Code(s): I48.0 - Paroxysmal atrial fibrillation Code(s): I48.91 - Unspecified atrial fibrillation Status: Chronic Assessment and Plan: - continue amiodarone and Eliquis (3) HLD (hyperlipidemia): Qualifiers: Hyperlipidemia type: pure hypercholesterolemia Qualified Code(s): E78.00 - Pure hypercholesterolemia, unspecified Code(s): E78.5 - Hyperlipidemia, unspecified Status: Chronic Assessment and Plan: - continue rosuvastatin daily (4) Hypertension: Qualifiers: Hypertension type: primary hypertension Qualified Code(s): I10 - Essential (primary) hypertension Code(s): I10 - Essential (primary) hypertension Status: Chronic Assessment and Plan: - chronic, currently 132/70, stable - continue home medications: Amlodipine, Coreg, HCTZ, losartan - monitor Plan Glucose 134 upon admission. A1C 5.6 Diet: Heart healthy GI Prophylaxis: N/a DVT Prophylaxis: SCDs IV fluids: LR 150 mL/hour x1 L Lines/Tubes: Peripheral IV Code Status: Full code Subjective Date/time seen: 03/17/25 10:45 Interval history: 74 y/o F with PMH of atrial fibrillation on anticoagulation, hypertension, CVA, and hyperlipidemia presents here with dizziness, nausea, and vomiting. CTA head/neck no acute intracranial abnormality, chronic right frontal lobe infarction, no significant vascular abnormality of the head or neck. Today reporting improvement in dizziness and nausea. Still has decreased hearing to the right ear and feeling of fullness. 03/17 Pt reports continued improvement in dizziness. No N/V. Is able to sit in chair for meals. Stands with mininal asisstance. Review of Systems Review of Systems: All systems reviewed & are unremarkable except as noted in HPI and below ENT: Reports system reviewed and no additional complaints, except as documented, Reports vertigo and Reports tinnitus Neurologic: Reports vertigo Exam Const: General: comfortable and no acute distress Other: , female, elderly, nontoxic appearance HENMT: Ears: TM abnormal with fluid behind the TM on the right, with loss of landmarks on the right and obstructed by cerumen on the left Face/Nose/Sinus: Normal nares present Mouth: Yes moist mucous membranes Eyes: General: appearance normal, both eyes and all related structures Sclera: sclerae normal Pupils: Equal, round and reactive pupils present EOM: EOMs intact bilaterally Neck: Neck: supple and no JVD Resp: Effort & Inspection: normal respiratory effort Auscultation: clear to auscultation bilaterally Cardio: Rate: regular rate Rhythm: regular rhythm Other: S1-S2 present without murmur, rub, ectopy GI: Other: Abdomen soft, nondistended, nontender. Normoactive bowel sounds in all quadrants. Skin: General skin exam: normal color and no rashes or lesions noted Wounds: no wounds Neuro: Cranial nerves: Yes Equal, round and reactive pupils present Speech: normal speech Motor exam (neuro): 5/5 motor strength present throughout Sensory Exam: normal sensation Other: A&O x4 Extrem: General: normal to inspection Psych: Mental Status: mental status grossly normal Affect: normal affect Other: Good insight and judgment, pleasant Objective Data Vital Signs Vital Signs: Vital Signs - 24 hr 03/16/25 12:00 03/16/25 14:00 03/16/25 15:26 Temperature 96.7 F L Pulse Rate 59 L 58 L Respiratory Rate 16 Blood Pressure 123/59 L Pulse Oximetry 94 Oxygen Delivery Room Air 03/16/25 16:00 03/16/25 20:00 03/16/25 21:01 Temperature 97.7 F Pulse Rate 56 L 57 L 57 L Respiratory Rate 14 Blood Pressure 133/71 Pulse Oximetry 92 Oxygen Delivery 03/16/25 21:38 03/16/25 21:43 03/17/25 00:00 Temperature Pulse Rate 68 52 L Respiratory Rate Blood Pressure Pulse Oximetry 92 Oxygen Delivery Room Air 03/17/25 04:00 03/17/25 06:25 03/17/25 08:00 Temperature 98 F Pulse Rate 67 55 L 61 Respiratory Rate 16 Blood Pressure 121/71 Pulse Oximetry 98 Oxygen Delivery 03/17/25 08:00 03/17/25 08:40 03/17/25 08:40 Temperature Pulse Rate 61 61 Respiratory Rate Blood Pressure Pulse Oximetry Oxygen Delivery Room Air Intake/Output Intake/Output: Intake & Output 03/14/25 03/15/25 03/16/25 03/17/25 23:59 23:59 23:59 23:59 Intake Total 1106 436 Output Total 1200 Balance 1106 -764 Meds/Results Medications: Active Medications Generic Name Dose Route Start Last Admin Trade Name Freq PRN Reason Stop Dose Admin Acetaminophen 650 mg 03/15/25 18:31 03/15/25 22:13 Acetaminophen 325 Mg Tablet PO 650 mg Q4H PRN Administration Mild Pain (1-3) or Fever Amiodarone HCl 100 mg 03/16/25 08:00 03/17/25 08:40 Amiodarone Hcl 100 Mg Tablet PO 100 mg DAILY@0800 IDALIA Administration Amlodipine Besylate 10 mg 03/16/25 09:00 03/17/25 08:40 Amlodipine Besylate 10 Mg Tablet PO 10 mg DAILY IDALIA Administration Apixaban 5 mg 03/15/25 22:30 03/17/25 08:40 Apixaban 5 Mg Tablet PO 5 mg Q12HR IDALIA Administration Bisacodyl 5 mg 03/15/25 18:31 Bisacodyl 5 Mg Tablet Ec PO DAILY PRN Constipation Carbamide Peroxide 5 drop 03/16/25 17:00 03/17/25 08:41 Carbamide Peroxide 6.5% Ot Soln 15 Ml Btl LEFT EAR 5 drop BID IDALIA Administration Carvedilol 25 mg 03/15/25 22:35 03/17/25 08:40 Carvedilol 25 Mg Tablet PO 25 mg Q12HR IDALIA Administration Diazepam 5 mg 03/15/25 20:46 Diazepam (*Crx) 5 Mg Tablet PO BID PRN Dizziness Diphenhydramine HCl 25 mg 03/15/25 21:00 03/16/25 21:43 Diphenhydramine Hcl Inj 50 Mg/Ml Vial IV PUSH 25 mg HS IDALIA Administration Hydrochlorothiazide 25 mg 03/16/25 09:00 03/17/25 08:41 Hydrochlorothiazide 25 Mg Tablet PO 25 mg DAILY IDALIA Administration Loratadine 10 mg 03/16/25 15:10 03/17/25 08:41 Loratadine 10 Mg Tablet PO 10 mg QAM IDALIA Administration Losartan Potassium 100 mg 03/15/25 22:35 03/16/25 21:43 Losartan Potassium 100 Mg Tablet PO 100 mg HS IDALIA Administration Meclizine HCl 12.5 mg 03/15/25 19:08 03/17/25 08:42 Meclizine Hcl 12.5 Mg Tablet PO 12.5 mg QID PRN Administration Dizziness Ondansetron HCl 4 mg 03/15/25 18:31 03/16/25 04:35 Ondansetron Inj 4 Mg/2 Ml Vial IV PUSH 4 mg Q6H PRN Administration Nausea And Vomiting Rosuvastatin Calcium 5 mg 03/15/25 22:35 03/16/25 21:43 Rosuvastatin 5 Mg Tablet PO 5 mg HS IDALIA Administration Radiology Results: ITS Impressions Head/Neck CTA 03/15/25 17:19 IMPRESSION: 1.: No acute intracranial abnormality. Chronic right frontal lobe infarction. 2: No significant vascular abnormality of the head or neck. Quality VTE Prophylaxis VTE prophylaxis: mechanical ordered and pharmacologic ordered
[2025-03-17] MEDS: diazePAM (*CRX) 5 MG TABLET PO (12:13)
--- NOTE | 2025-03-17 16:27 | WPDPROCEDUR ---
Procedures Other Procedures Procedure 1: Other Procedure: Cerumen removal. Verbal consent obtained left-sided viewed removed with curette patient tolerated the procedure well. Enough cerumen was removed to allow direct visualization of the tympanic membrane and middle ear. Patient tolerated the procedure very well.
--- NOTE | 2025-03-17 16:28 | WPDCN ---
Assessment and Plan Assessment and plan (1) Acute labyrinthitis: Code(s): H83.09 - Labyrinthitis, unspecified ear Status: Acute Assessment and Plan: -No ent need for antibiotics -No need for ear drops -Recommend PT consultation to rule in/out bppv canolithiasis of the right semicircular canals. If present please treat. Vestibular rehab will help with the vertigo/balance as well -Treatment for this disorder usually entails either high dose oral/iv corticosteroids, typically 60mg of prednisone for 10 days, or middle ear injections (can be performed in clinic). If steroids started inpatient, please monitor blood sugar levels. Earlier is better regarding the steroid treatment. If we can't start oral or IV inpatient, we should get this patient into our clinic denise/next week. -Recommend stat/urgent audiologic evaluation if able to obtain inpatient. If not, I can arrange this as an outpatient. HPI Data of Consult Date/Time: 03/17/25 16:28 Requesting Physician: Michael Dnenis MD Primary Care Provider: Avtar Frausto MD Consult Narrative Reason for consult: Acute onset vertigo hearing loss Narrative: Brianne Noble is a 74 year old female right-sided hearing loss vertigo. Consistent with labyrinth tinnitus. Imaging reviewed normal. MRI brain reviewed no large CPA mass. CT reviewed no fluid in the middle ears. Normal mastoids. Normal otologic anatomy. 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 HLD (hyperlipidemia) Diverticulosis Personal history of adenomatous and serrated colon polyps Other detention (current) drug therapy Family history of malignant neoplasm of digestive organs Atrial fibrillation Hypertension Arthritis Surgical History Surgical History History of lumpectomy breast, benign Family History Family History (Updated 03/15/25 @ 21:50 by Bee Robison RN) Mother Colon cancer Father Parkinson disease Social History Social History Smoking status: Never smoker Second hand tobacco smoke exposure: No Alcohol intake: current Drinks per week: 1 Alcohol use details: DIANA Substance use: never Substance use type: does not use Do You Feel Safe in your Home?: Yes Lack of Transportation: No Lack of Food: Never True Current Housing: I Have Housing Concerned About Future Housing: No Difficulty Paying Gas/Electric Bills: No Difficulty Paying for Meds: No Currently Unemployed: No Education: Associate Degree Difficulty w/ Childcare or Family Care: No Living arrangements: alone Occupation/Education: retired Gender identity (if verbalized by the patient): Female Sexual Orientation (if Verbalized by the Patient): Straight or Heterosexual Spiritual care concerns: No Meds Home Medications and Allergies Home Medications ?Medication ?Instructions ?Recorded ?Confirmed ?Type carvedilol 25 mg tablet 25 mg PO Q12H 08/26/22 03/15/25 History losartan 100 mg tablet 100 mg PO HS 08/26/22 03/15/25 History amiodarone 200 mg tablet 100 mg PO DAILY 09/18/22 03/15/25 History cartilage 40 mg-collagen II-boron 1 tablet PO DAILY 07/25/24 03/15/25 History 5 mg-hyaluronate sod 3.3 mg tablet (Move Free Ultra Triple Action (boron)) apixaban 5 mg tablet 5 mg PO BID #200 tabs 09/06/24 03/15/25 Rx amlodipine 10 mg tablet 10 mg PO DAILY #100 tabs 03/01/25 03/15/25 Rx hydrochlorothiazide 25 mg tablet 25 mg PO DAILY #100 tabs 03/01/25 03/15/25 Rx rosuvastatin 5 mg tablet 5 mg PO HS 03/15/25 03/15/25 History Allergies Allergy/AdvReac Type Severity Reaction Status Date / Time dronedarone (From Multaq) Allergy Shakiness Verified 03/15/25 23:59 codeine AdvReac Intermediate NAUSEA, Verified 03/15/25 23:59 VOMITING AND HEADACHE. TAPE Allergy Mild SKIN Uncoded 10/27/24 09:32 IRRITATION Vital Signs Vital Signs - 24 hr 03/16/25 20:00 03/16/25 21:01 03/16/25 21:38 Temperature 36.5 C Pulse Rate 57 L 57 L Respiratory Rate 14 Blood Pressure 133/71 Pulse Oximetry 92 92 Oxygen Delivery Room Air 03/16/25 21:43 03/17/25 00:00 03/17/25 04:00 Temperature Pulse Rate 68 52 L 67 Respiratory Rate Blood Pressure Pulse Oximetry Oxygen Delivery 03/17/25 06:25 03/17/25 08:00 03/17/25 08:00 Temperature 36.6 C Pulse Rate 55 L 61 Respiratory Rate 16 Blood Pressure 121/71 Pulse Oximetry 98 Oxygen Delivery Room Air 03/17/25 08:40 03/17/25 08:40 03/17/25 12:00 Temperature Pulse Rate 61 61 68 Respiratory Rate Blood Pressure Pulse Oximetry Oxygen Delivery 03/17/25 14:00 Temperature 36.8 C Pulse Rate 74 Respiratory Rate 16 Blood Pressure 125/68 Pulse Oximetry 98 Oxygen Delivery Exam Narrative: Completely normal ear exam. Right side had cerumen. Half of it was removed. Direct visualization of the tympanic membrane showed completely aerated middle ear bilaterally. Results Labs 03/16/25 05:33 03/16/25 05:33
[2025-03-17] MEDS: LOSARTAN POTASSIUM 100 MG TABLET PO (21:24)
[2025-03-17] MEDS: ROSUVASTATIN 5 MG TABLET PO (21:24)
[2025-03-18] VITALS (10 sets, daily range): BP systolic 138–163; BP diastolic 74–91; PULSE 58–78; RESP 16–18; TEMP 36.4–36.6; O2SAT 94–97
[2025-03-18] MEDS: APIXABAN 5 MG TABLET PO ×2 (09:40→20:43)
[2025-03-18] MEDS: AMIODARONE HCL 100 MG TABLET PO (09:40)
--- NOTE | 2025-03-18 10:28 | P.PNIM_ITS ---
Progress Note: A&P Assessment and Plan (1) Acute vestibular neuritis: Qualifiers: Laterality: right Qualified Code(s): H81.21 - Vestibular neuronitis, right ear Code(s): H81.20 - Vestibular neuronitis, unspecified ear Status: Acute Assessment and Plan: Presented on 03/15 with significant dizziness, right ear fullness, and right ear hearing loss that did not resolve with meclizine, scopolamine, or Valium. Last known well on 03/14. Discovery of symptoms at 6:00 a.m. on 03/15. CTA of the head/neck showed no acute findings or significant vascular abnormality, chronic right frontal lobe infarction noted. Exam in the ED showed unilateral nystagmus to the right, a corrective saccade on the head impulse test supporting a peripheral lesion, and a negative test of skew. Admitted for neurology consultation and due to significant concern for falls secondary to vertigo as she is on Eliquis. Presentation at this time most consistent with vestibular neuritis/labyrinthitis. - patient does have risk factors for CVA including HTN and HLD, check MRI to r/o - start meclizine prn, Valium p.r.n., and Benadryl idalia HS in event patient's symptoms are related to vestibular neuritis/labyrinthitis. Given this particularly presents post-viral, will check viral PCR. - antiemetic prn - fall precautions - neurology consulted At time of evaluation, the patient is reporting continued improvement with her dizziness. Debrox gtts for cerumen impaction on left. MRI reveals no acute intracranial process. Consult to ENT. 03/18 ENT recs reviewed and ordered. Plan to DC home tomorrow with 60 mg prednisone for 10 days. Follow up with ENT outpatient. (2) Atrial fibrillation: Qualifiers: Atrial fibrillation type: paroxysmal Qualified Code(s): I48.0 - Paroxysmal atrial fibrillation Code(s): I48.91 - Unspecified atrial fibrillation Status: Chronic Assessment and Plan: - continue amiodarone and Eliquis (3) HLD (hyperlipidemia): Qualifiers: Hyperlipidemia type: pure hypercholesterolemia Qualified Code(s): E78.00 - Pure hypercholesterolemia, unspecified Code(s): E78.5 - Hyperlipidemia, unspecified Status: Chronic Assessment and Plan: - continue rosuvastatin daily (4) Hypertension: Qualifiers: Hypertension type: primary hypertension Qualified Code(s): I10 - Essential (primary) hypertension Code(s): I10 - Essential (primary) hypertension Status: Chronic Assessment and Plan: - chronic, currently 132/70, stable - continue home medications: Amlodipine, Coreg, HCTZ, losartan - monitor Plan Glucose 134 upon admission. A1C 5.6 Diet: Heart healthy GI Prophylaxis: N/a DVT Prophylaxis: SCDs IV fluids: LR 150 mL/hour x1 L Lines/Tubes: Peripheral IV Code Status: Full code Subjective Date/time seen: 03/18/25 0930 Interval history: 74 y/o F with PMH of atrial fibrillation on anticoagulation, hypertension, CVA, and hyperlipidemia presents here with dizziness, nausea, and vomiting. CTA head/neck no acute intracranial abnormality, chronic right frontal lobe infarction, no significant vascular abnormality of the head or neck. Today reporting improvement in dizziness and nausea. Still has decreased hearing to the right ear and feeling of fullness. 03/17 Pt reports continued improvement in dizziness. No N/V. Is able to sit in chair for meals. Stands with mininal asisstance. 03/18 Vertigo has greatly improved. Patient states she feels safe to return home 03/19. Review of Systems Review of Systems: All systems reviewed & are unremarkable except as noted in HPI and below ENT: Reports system reviewed and no additional complaints, except as sophie gutierrez, Reports vertigo and Reports tinnitus Neurologic: Reports vertigo Exam Const: General: comfortable and no acute distress Other: , female, elderly, nontoxic appearance HENMT: Ears: TM abnormal with fluid behind the TM on the right, with loss of landmarks on the right and obstructed by cerumen on the left Face/Nose/Sinus: Normal nares present Mouth: Yes moist mucous membranes Eyes: General: appearance normal, both eyes and all related structures Sclera: sclerae normal Pupils: Equal, round and reactive pupils present EOM: EOMs intact bilaterally Neck: Neck: supple and no JVD Resp: Effort & Inspection: normal respiratory effort Auscultation: clear to auscultation bilaterally Cardio: Rate: regular rate Rhythm: regular rhythm Other: S1-S2 present without murmur, rub, ectopy GI: Other: Abdomen soft, nondistended, nontender. Normoactive bowel sounds in all quadrants. Skin: General skin exam: normal color and no rashes or lesions noted Wounds: no wounds Neuro: Cranial nerves: Yes Equal, round and reactive pupils present Speech: normal speech Motor exam (neuro): 5/5 motor strength present throughout Sensory Exam: normal sensation Other: A&O x4 Extrem: General: normal to inspection Psych: Mental Status: mental status grossly normal Affect: normal affect Other: Good insight and judgment, pleasant Objective Data Vital Signs Vital Signs: Vital Signs - 24 hr 03/17/25 12:00 03/17/25 14:00 03/17/25 16:00 Temperature 98.3 F Pulse Rate 68 74 56 L Respiratory Rate 16 Blood Pressure 125/68 Pulse Oximetry 98 Oxygen Delivery 03/17/25 20:00 03/17/25 20:00 03/17/25 20:23 Temperature 98.8 F Pulse Rate 57 L 50 L Respiratory Rate 16 Blood Pressure 155/73 H Pulse Oximetry 93 Oxygen Delivery Room Air 03/17/25 21:46 03/18/25 00:00 03/18/25 04:00 Temperature Pulse Rate 50 L 59 L 58 L Respiratory Rate Blood Pressure Pulse Oximetry Oxygen Delivery 03/18/25 05:27 Temperature 97.6 F Pulse Rate 78 Respiratory Rate 16 Blood Pressure 163/91 H Pulse Oximetry 97 Oxygen Delivery Intake/Output Intake/Output: Intake & Output 03/15/25 03/16/25 03/17/25 03/18/25 23:59 23:59 23:59 23:59 Intake Total 1106 1516 Output Total 1610 Balance 1106 -94 Meds/Results Medications: Active Medications Generic Name Dose Route Start Last Admin Trade Name Freq PRN Reason Stop Dose Admin Acetaminophen 650 mg 03/15/25 18:31 03/15/25 22:13 Acetaminophen 325 Mg Tablet PO 650 mg Q4H PRN Administration Mild Pain (1-3) or Fever Amiodarone HCl 100 mg 03/16/25 08:00 03/18/25 09:40 Amiodarone Hcl 100 Mg Tablet PO 100 mg DAILY@0800 IDALIA Administration Amlodipine Besylate 10 mg 03/16/25 09:00 03/18/25 09:40 Amlodipine Besylate 10 Mg Tablet PO 10 mg DAILY IDALIA Administration Apixaban 5 mg 03/15/25 22:30 03/18/25 09:40 Apixaban 5 Mg Tablet PO 5 mg Q12HR IDALIA Administration Bisacodyl 5 mg 03/15/25 18:31 Bisacodyl 5 Mg Tablet Ec PO DAILY PRN Constipation Carvedilol 25 mg 03/15/25 22:35 03/18/25 09:40 Carvedilol 25 Mg Tablet PO 25 mg Q12HR IDALIA Administration Dextrose 12.5 gm 03/18/25 09:32 Dextrose 50% 25 Gm/50 Ml Syringe IV PUSH PRN PRN Hypoglycemia Protocol Diazepam 5 mg 03/15/25 20:46 03/17/25 12:13 Diazepam (*Crx) 5 Mg Tablet PO 5 mg BID PRN Administration Dizziness Diphenhydramine HCl 25 mg 03/18/25 21:00 Diphenhydramine Hcl Cap 25 Mg Capsule PO HS IDALIA Glucagon 1 mg 03/18/25 09:32 Glucagon For Inj 1 Mg Vial IM PRN PRN Hypoglycemia Protocol Glucose 15 gm 03/18/25 09:32 Glucose Oral Gel 15 Gm Of Glucse In 37.5 Gm Tube PO PRN PRN Hypoglycemia Protocol Hydrochlorothiazide 25 mg 03/16/25 09:00 03/18/25 09:40 Hydrochlorothiazide 25 Mg Tablet PO 25 mg DAILY IDALIA Administration Dextrose 1,000 mls @ 100 mls/hr 03/18/25 09:32 Dextrose 5% 1,000 Ml IVPB PRN PRN Hypoglycemia Protocol Insulin Aspart 2 - 5 units 03/18/25 12:00 Insulin Aspart (*Bkc) 100 Units/Ml SUB-Q TIDWM IDALIA Protocol Losartan Potassium 100 mg 03/15/25 22:35 03/17/25 21:24 Losartan Potassium 100 Mg Tablet PO 100 mg HS IDALIA Administration Meclizine HCl 12.5 mg 03/15/25 19:08 03/17/25 17:47 Meclizine Hcl 12.5 Mg Tablet PO 12.5 mg QID PRN Administration Dizziness Ondansetron HCl 4 mg 03/15/25 18:31 03/16/25 04:35 Ondansetron Inj 4 Mg/2 Ml Vial IV PUSH 4 mg Q6H PRN Administration Nausea And Vomiting Prednisone 60 mg 03/18/25 10:00 03/18/25 09:39 Prednisone 20 Mg Tablet PO 03/28/25 09:59 60 mg DAILY@0800 IDALIA Administration Rosuvastatin Calcium 5 mg 03/15/25 22:35 03/17/25 21:24 Rosuvastatin 5 Mg Tablet PO 5 mg HS IDALIA Administration Radiology Results: ITS Impressions Head/Neck CTA 03/15/25 17:19 IMPRESSION: 1.: No acute intracranial abnormality. Chronic right frontal lobe infarction. 2: No significant vascular abnormality of the head or neck. Brain MRI 03/17/25 14:04 IMPRESSION: No acute process Quality VTE Prophylaxis VTE prophylaxis: mechanical ordered and pharmacologic ordered
[2025-03-18] MEDS: MECLIZINE HCL 12.5 MG TABLET PO (12:13)
[2025-03-18] MEDS: LOSARTAN POTASSIUM 100 MG TABLET PO (20:42)
[2025-03-18] MEDS: diphenhydrAMINE HCl CAP 25 MG CAPSULE PO (20:43)
[2025-03-18] MEDS: ROSUVASTATIN 5 MG TABLET PO (20:43)
[2025-03-19] VITALS: PULSE 56
[2025-03-19 04:00] VITALS: PULSE 56
[2025-03-19 05:52] VITALS: BP 170/91; PULSE 63; RESP 16; TEMP 36.1; O2SAT 98
[2025-03-19 08:00] VITALS: PULSE 54
[2025-03-19] MEDS: AMIODARONE HCL 100 MG TABLET PO (09:39)
[2025-03-19] MEDS: APIXABAN 5 MG TABLET PO (09:40)
[2025-03-19 14:00] VITALS: BP 147/69; PULSE 60; RESP 18; TEMP 36.6; O2SAT 96
--- NOTE | 2025-03-19 14:21 | PM.IMPN ---
Subjective Date/time seen: 03/19/25 14:21 Objective Data Vital Signs Vital Signs: Vital Signs - 24 hr 03/18/25 16:00 03/18/25 16:17 03/18/25 20:00 Temperature 97.9 F Pulse Rate 74 69 Respiratory Rate 16 Blood Pressure 138/74 Pulse Oximetry 94 Oxygen Delivery Room Air 03/18/25 20:00 03/18/25 20:01 03/18/25 20:43 Temperature 97.9 F Pulse Rate 65 70 73 Respiratory Rate 18 Blood Pressure 154/74 H Pulse Oximetry 96 Oxygen Delivery 03/19/25 00:00 03/19/25 04:00 03/19/25 05:52 Temperature 97 F L Pulse Rate 56 L 56 L 63 Respiratory Rate 16 Blood Pressure 170/91 H Pulse Oximetry 98 Oxygen Delivery 03/19/25 08:00 03/19/25 08:00 Temperature Pulse Rate 54 L Respiratory Rate Blood Pressure Pulse Oximetry Oxygen Delivery Room Air Intake/Output Intake/Output: Intake & Output 03/16/25 03/17/25 03/18/25 03/19/25 23:59 23:59 23:59 23:59 Intake Total 1106 1516 1270 180 Output Total 1610 Balance 1106 -94 1270 180 Meds/Results Medications: Active Medications Generic Name Dose Route Start Last Admin Trade Name Docq PRN Reason Stop Dose Admin Acetaminophen 650 mg 03/15/25 18:31 03/15/25 22:13 Acetaminophen 325 Mg Tablet PO 650 mg Q4H PRN Administration Mild Pain (1-3) or Fever Amiodarone HCl 100 mg 03/16/25 08:00 03/19/25 09:39 Amiodarone Hcl 100 Mg Tablet PO 100 mg DAILY@0800 RADHA Administration Amlodipine Besylate 10 mg 03/16/25 09:00 03/19/25 09:40 Amlodipine Besylate 10 Mg Tablet PO 10 mg DAILY RADHA Administration Apixaban 5 mg 03/15/25 22:30 03/19/25 09:40 Apixaban 5 Mg Tablet PO 5 mg Q12HR RADHA Administration Bisacodyl 5 mg 03/15/25 18:31 Bisacodyl 5 Mg Tablet Ec PO DAILY PRN Constipation Carvedilol 25 mg 03/15/25 22:35 03/19/25 09:40 Carvedilol 25 Mg Tablet PO 25 mg Q12HR RADHA Administration Dextrose 12.5 gm 03/18/25 09:32 Dextrose 50% 25 Gm/50 Ml Syringe IV PUSH PRN PRN Hypoglycemia Protocol Diazepam 5 mg 03/15/25 20:46 03/17/25 12:13 Diazepam (*Crx) 5 Mg Tablet PO 5 mg BID PRN Administration Dizziness Diphenhydramine HCl 25 mg 03/18/25 21:00 03/18/25 20:43 Diphenhydramine Hcl Cap 25 Mg Capsule PO 25 mg HS RADHA Administration Glucagon 1 mg 03/18/25 09:32 Glucagon For Inj 1 Mg Vial IM PRN PRN Hypoglycemia Protocol Glucose 15 gm 03/18/25 09:32 Glucose Oral Gel 15 Gm Of Glucse In 37.5 Gm Tube PO PRN PRN Hypoglycemia Protocol Hydrochlorothiazide 25 mg 03/16/25 09:00 03/19/25 09:40 Hydrochlorothiazide 25 Mg Tablet PO 25 mg DAILY RADHA Administration Dextrose 1,000 mls @ 100 mls/hr 03/18/25 09:32 Dextrose 5% 1,000 Ml IVPB PRN PRN Hypoglycemia Protocol Insulin Aspart 2 - 5 units 03/18/25 12:00 03/19/25 12:22 Insulin Aspart (*Bkc) 100 Units/Ml SUB-Q Not Given TIDWM RADHA Protocol Losartan Potassium 100 mg 03/15/25 22:35 03/18/25 20:42 Losartan Potassium 100 Mg Tablet PO 100 mg HS RADHA Administration Meclizine HCl 12.5 mg 03/15/25 19:08 03/18/25 12:13 Meclizine Hcl 12.5 Mg Tablet PO 12.5 mg QID PRN Administration Dizziness Ondansetron HCl 4 mg 03/15/25 18:31 03/16/25 04:35 Ondansetron Inj 4 Mg/2 Ml Vial IV PUSH 4 mg Q6H PRN Administration Nausea And Vomiting Prednisone 60 mg 03/18/25 10:00 03/19/25 09:40 Prednisone 20 Mg Tablet PO 03/28/25 09:59 60 mg DAILY@0800 RADHA Administration Rosuvastatin Calcium 5 mg 03/15/25 22:35 03/18/25 20:43 Rosuvastatin 5 Mg Tablet PO 5 mg HS RADHA Administration Radiology Results: ITS Impressions Head/Neck CTA 03/15/25 17:19 IMPRESSION: 1.: No acute intracranial abnormality. Chronic right frontal lobe infarction. 2: No significant vascular abnormality of the head or neck. Brain MRI 03/17/25 14:04 IMPRESSION: No acute process Labs Labs: Laboratory Results - last 24 hr 03/18/25 03/18/25 03/19/25 17:09 20:46 08:06 POC Capillary Glucose 152 H 173 H 103 03/19/25 11:56 POC Capillary Glucose 120 H
--- NOTE | 2025-03-19 14:22 | P.DS_ITS ---
DS: Admitting Diagnosis Discharge Date 03/19 Admitting Diagnosis dizziness DS: Discharge Diagnosis Discharge Diagnosis (1) Acute vestibular neuritis: Qualifiers: Laterality: right Qualified Code(s): H81.21 - Vestibular neuronitis, right ear Code(s): H81.20 - Vestibular neuronitis, unspecified ear Status: Acute (2) Atrial fibrillation: Qualifiers: Atrial fibrillation type: paroxysmal Qualified Code(s): I48.0 - Paroxysmal atrial fibrillation Code(s): I48.91 - Unspecified atrial fibrillation Status: Chronic (3) HLD (hyperlipidemia): Qualifiers: Hyperlipidemia type: pure hypercholesterolemia Qualified Code(s): E78.00 - Pure hypercholesterolemia, unspecified Code(s): E78.5 - Hyperlipidemia, unspecified Status: Chronic (4) Hypertension: Qualifiers: Hypertension type: primary hypertension Qualified Code(s): I10 - Essential (primary) hypertension Code(s): I10 - Essential (primary) hypertension Status: Chronic DS: Summary Hospital Course Hospital Course: 74 y/o F with PMH of atrial fibrillation on anticoagulation, hypertension, CVA, and hyperlipidemia presents here with dizziness, nausea, and vomiting. CTA head/neck no acute intracranial abnormality, chronic right frontal lobe infarction, no significant vascular abnormality of the head or neck. Today reporting improvement in dizziness and nausea. Still has decreased hearing to the right ear and feeling of fullness. Neurology was consulted: An MRI of the brain is pending and a it is important to look into the brainstem since the symptoms can overlap with brainstem pathology. CT scan of the brain and CT angiogram of head and neck shows old infarct in the right frontal area. No brainstem findings were noted however MRI would be more sensitive in identification of such abnormality. She has history of atrial fibrillation and she is on Eliquis. The hearing in the right ear is also decreased and that he has a new problem. One of the nursing staff mention to her about teaching her Branden maneuver and I have advised her to wait till we get the MRI done and certainly if she still symptomatic vestibular exercises May be helpful. Furthermore an ENT evaluation for right ear should be considered. ENT was consulted, Dr Rubio: Labyrinthitis, unspecified ear -No ent need for antibiotics -No need for ear drops -Recommend PT consultation to rule in/out bppv canolithiasis of the right semicircular canals. If present please treat. Vestibular rehab will help with the vertigo/balance as well -Treatment for this disorder usually entails either high dose oral/iv corticosteroids, typically 60mg of prednisone for 10 days, or middle ear injections (can be performed in clinic). If steroids started inpatient, please monitor blood sugar levels. Earlier is better regarding the steroid treatment. If we can't start oral or IV inpatient, we should get this patient into our clinic denise/next week. -Recommend stat/urgent audiologic evaluation if able to obtain inpatient. If not, I can arrange this as an outpatient. She is stable for discharge with CLOSE F/u with ENT, complete her steroids, and outpt PT/OT for Vestibular rehab will help with the vertigo/balance. She has glucometer at home (she can borrow from her sister). She will monitor her BS closely to check for hyperglycemia. Status at Discharge Functional status at discharge: independent ambulation Overall status at discharge: patient is progressing back to baseline Time Spent with Patient Time attestation: Total time spent providing and/or coordinating discharge services: Time spent: Greater than 30 minutes Exam Const: General: comfortable and no acute distress Other: , female, elderly, nontoxic appearance HENMT: Ears: TM abnormal with fluid behind the TM on the right, with loss of l andmarks on the right and obstructed by cerumen on the left Face/Nose/Sinus: Normal nares present Mouth: Yes moist mucous membranes Eyes: General: appearance normal, both eyes and all related structures Sclera: sclerae normal Pupils: Equal, round and reactive pupils present EOM: EOMs intact bilaterally Other: Horizontal nystagmus noted. Neck: Neck: supple and no JVD Resp: Effort & Inspection: normal respiratory effort Auscultation: clear to auscultation bilaterally Cardio: Rate: regular rate Rhythm: regular rhythm Other: S1-S2 present without murmur, rub, ectopy GI: Other: Abdomen soft, nondistended, nontender. Normoactive bowel sounds in all quadrants. Skin: General skin exam: normal color and no rashes or lesions noted Wo unds: no wounds Neuro: Cranial nerves: Yes Equal, round and reactive pupils present Speech: normal speech Motor exam (neuro): 5/5 motor strength present throughout Sensory Exam: normal sensation Other: A&O x4 Extrem: General: normal to inspection Psych: Mental Status: mental status grossly normal Affect: normal affect Other: Good insight and judgment, pleasant DS: Data Data Completed and Pending Labs on day of discharge: Labs from last 24 hours 03/19/25 03/19/25 03/18/25 11:56 08:06 20:46 POC Capillary Glucose 120 H 103 173 H 03/18/25 17:09 POC Capillary Glucose 152 H Discharge Plan Discharge Attending physician on discharge: Robina Obando Consulting providers: Jorge Harkins; Barbara Zhao Discharging Clinician: Zaida Hood Patient Disposition: Home Activity: october shower Diet: heart healthy Discharge Instructions: YOu were admitted for dizziness. Neurology and ENT was consulted. No ent need for antibiotics -No need for ear drops -Recommend PT consultation to rule in/out bppv canolithiasis of the right semicircular canals. If present please treat. Vestibular rehab will help with the vertigo/balance as well -Treatment for this disorder usually entails either high dose oral/iv corticosteroids, typically 60mg of prednisone for 10 days, or middle ear injec tions (can be performed in clinic). If steroids started inpatient, please monitor blood sugar levels. Earlier is better regarding the steroid treatment. -Recommend stat/urgent audiologic evaluation if able to obtain inpatient. If not, I can arrange this as an outpatient. She is stable for discharge with CLOSE F/u with ENT, complete her steroids, and outpt PT/OT for Vestibular rehab will help with the vertigo/balance. She has glucometer at home (she can borrow from her sister). She will monitor her BS closely to check for hyperglycemia. Patient Instructions: Antibiotic Form Patient Language: Dominican Stand Alone Forms: General Discharge Information Follow-up/Referrals: Wicho Rubio MD [Physician, Ear, Nose, Throat] - 03/20/25 Referral Note: call thursday for an sukumar Avtar Frausto MD [Primary Care Provider, Family Practice] Discharge Medications: New prednisone 20 mg Tablet 60 mg PO DAILY@0800 Qty: 9 0RF meclizine 12.5 mg Tablet 12.5 mg PO QID PRN (Reason: Dizziness) Qty: 30 0RF Continued losartan 100 mg tablet 100 mg PO HS carvedilol 25 mg tablet 25 mg PO Q12H Rx Instructions: must administer with a meal/food amiodarone 200 mg tablet 100 mg PO DAILY [id number] [Move Free Ultra Triple Action] 40-5-3.3 mg tablet 1 tablet PO DAILY rosuvastatin 5 mg tablet 5 mg PO HS apixaban 5 mg tablet 5 mg PO BID Qty: 200 1RF amlodipine 10 mg tablet 10 mg PO DAILY Qty: 100 1RF hydrochlorothiazide 25 mg tablet 25 mg PO DAILY Qty: 100 1RF Other Ambulatory Orders: OT Outpatient Eval and Treat (ONCE) Timeframe: 20250326 Location: Determined by Patient Ordered By: Zaida Hood PT Outpatient Eval and Treat (ONCE) Timeframe: 20250326 Location: Determined by Patient Ordered By: Zaida Hood Date of admission: 03/16/25 16:45 Primary Care Provider: Avtar Frausto Admitting Provider: Michael Dennis Attending physician on admission: Michael Dennis Condition: Stable Quality VTE Prophylaxis VTE prophylaxis: mechanical ordered and pharmacologic ordered Hospitalist MIPS Heart Failure (Exclusion) Patient has history of Heart Transplant or Left Ventricular Assistive Device?: No IF YES, STOP HERE Heart Failure (Qualifier) Patient has current or prior documentation of LVEF less than or equal to 40%, or mod/servere depressed LVSF?: No IF NO, STOP HERE
== END 2025-03-19 16:40 | disposition home or self-care (01) | DRG 149 ==
LOC: ANHED 17:53 → ANH3MEDSUR 18:43 → ANH3MED 20:44
PROVIDERS: Student in an Organized Health Care Education/Training Program; Admitting Provider General Practice; Emergency Provider Emergency Medicine; PCP Family Medicine; Visit Provider Nurse Practitioner
DX: H81.21 Vestibular neuronitis, right ear (principal); H83.01 Labyrinthitis, right ear; I48.0 Paroxysmal atrial fibrillation; E78.5 Hyperlipidemia, unspecified; I10 Essential (primary) hypertension; I48.91 Unspecified atrial fibrillation; M19.90 Unspecified osteoarthritis, unspecified site; K57.90 Diverticulosis of intestine, part unspecified, without perforation or abscess without bleeding; Z79.01 Long term (current) use of anticoagulants; Z86.73 Personal history of transient ischemic attack (TIA), and cerebral infarction without residual deficits
CPT/HCPCS: 36415; 70496; 70498; 70553; 80048; 80053; 81003; 82948; 83036; 83690; 85025; 87637; 96374; 96375; 97161; 99285; A9270; A9577; G0378; J1200; J2405; J3360; J7120; J7512; Q9967

== ENCOUNTER 2025-03-22 11:01 | Outpatient (CLI) | payer MEDICARE, SELFPAY ==
--- OUTSIDE RECORDS SUMMARY | 2025-03-22 11:49 | XMS_ITS | Encounter Summary ---
Author Organization [facility] Healthcare Address [address] [place] [address] Care Team Providers Care Mortgage Field Inspector Name Role Phone Avtar Frausto MD Primary Care Provider [phone] Encounter Details Date Type Department Care Team (Late st Contact Info) Description 10/20/2017 Orders Only [facility] Health Information Management [address] [place] [phone] Scanning, Provider Social History Tobacco Use [...] on filedocumented in this encounter Care Teams Mortgage Field Inspector Relationship Specialty Start Date End Date Avtar Frausto MD [address] [place] [id number] PCP - General Family Medicine 10/23/17 documented as of this encounter
--- OUTSIDE RECORDS SUMMARY | 2025-03-22 11:49 | XMS_ITS | Clinical Summary ---
Author Organization [facility] [address] Address [address] [place] [address] Care Team Providers Care Raw Products Director Name Role Phone Avtar Frausto MD Primary Care Provider [phone] Allergies No known active allergies Medications cartilage/collag [...] Comments Blood Pressure 122/79 07/20/2024 10:19 AM [employer] Pulse 66 07/20/2024 10:19 AM [employer] Temperature 36.3 C (97.3 F) 07/06/2020 10:13 AM [employer] Respiratory Rate - - Oxygen Saturation 97% 07/20/2024 10:19 AM [employer] Inhaled Oxygen Concentration - - Weight 66.2 kg (146 lb) 07/20/2024 10:19 AM [employer] Height 170.2 cm (5' 7) 07/20/2024 10:19 AM [employer] Body Mass Index 22.87 07/20/2024 10:19 AM [employer] Plan of Treatment Health Maintenance Due Date [...] Pneumococcal vaccine 65+ Completed 04/19/2019, 03/23 Insurance [employer] [facility] REF [facility] REF Care Teams Raw Products Director Relationship Specialty Start Date End Date Avtar Frausto MD [address] [place] [id number] PCP - General Family Medicine 10/23/17
--- OUTSIDE RECORDS SUMMARY | 2025-03-22 11:49 | XMS_ITS | Encounter Summary ---
Author Organization [facility] Healthcare Address [address] [place] [address] Care Team Providers Care Laboratory Coordinator Name Role Phone Avtar Frausto MD Primary Care Provider [phone] Encounter Details Date Type Department Care Team (Late st Contact Info) Description 11/22/2017 Orders Only [facility] Health Information Management [address] [place] [phone] Scanning, Provider Social History Tobacco Use [...] on filedocumented in this encounter Care Teams Laboratory Coordinator Relationship Specialty Start Date End Date Avtar Frausto MD [address] [place] [phone] PCP - General Family Medicine 10/23/17 documented as of this encounter
--- OUTSIDE RECORDS SUMMARY | 2025-03-22 11:49 | XMS_ITS | Encounter Summary ---
Author Organization [facility] Healthcare Address [address] [place] [address] Care Team Providers Care Ferryboat Ticket Taker Name Role Phone Avtar Frausto MD Primary Care Provider [phone] Encounter Details Date Type Department Care Team (Late st Contact Info) Description 11/19/2017 Orders Only [facility] [place] Information Management [address] [place] [phone] Scanning, Provider Social History Tobacco Use [...] on filedocumented in this encounter Care Teams Ferryboat Ticket Taker Relationship Specialty Start Date End Date Avtar Frausto MD [address] [place] [phone] PCP - General Family Medicine 10/23/17 documented as of this encounter
== END 2025-03-22 11:02 | disposition home or self-care (01) ==
PROVIDERS: PCP Family Medicine; Visit Provider Otolaryngology
DX: H83.09 Labyrinthitis, unspecified ear (principal); H81.21 Vestibular neuronitis, right ear; H90.41 Sensorineural hearing loss, unilateral, right ear, with unrestricted hearing on the contralateral side
CPT/HCPCS: 92557; 92567

== ENCOUNTER 2025-04-10 12:19 | Outpatient (CLI) | payer MEDICARE, SELFPAY | END 2025-04-10 12:20 | disposition home or self-care (01) | LOC: ANHAUDIO 12:19 | PROVIDERS: PCP Family Medicine; Visit Provider Otolaryngology | DX: H90.3 Sensorineural hearing loss, bilateral (principal); H81.21 Vestibular neuronitis, right ear; H61.22 Impacted cerumen, left ear; H81.01 Meniere's disease, right ear | CPT/HCPCS: 92557; 92567 ==

== ENCOUNTER 2025-04-12 10:08 | Outpatient (CLI) | payer MEDICARE, SELFPAY ==
--- NOTE | ~2025-04-12 | MM_ITS ---
EXAMINATION: MM screening kalyani BI w ramy HISTORY: Screening TECHNIQUE: Craniocaudal and mediolateral oblique 3-D tomosynthesis images were obtained and synthetic 2-D images were generated. CAD analysis was submitted and interpreted. COMPARISON: Comparison to multiple prior studies sequentially, with oldest reviewed study dated , 09/27/2021 BREAST PARENCHYMAL COMPOSITION: There are scattered areas of fibroglandular density. FINDINGS: There is no evidence of suspicious mass, calcification, or architectural distortion to suggest malignancy in either breast. IMPRESSION: 1. No mammographic evidence of malignancy. 2. Recommend routine screening mammography in one year. BI-RADS Category 1: Negative Reviewed, dictated and finalized at location B.
--- OUTSIDE RECORDS SUMMARY | 2025-04-12 12:16 | XMS_ITS | Encounter Summary ---
Author Organization [facility] Healthcare Address [address] [place] [address] Care Team Providers Care Revenue Analyst Name Role Phone Avtar Frausto MD Primary Care Provider [phone] Encounter Details Date Type Department Care Team (Late st Contact Info) Description 11/19/2017 Orders Only [facility] [place] Information Management [address] [place] [phone] Scanning, Provider Social History Tobacco Use [...] on filedocumented in this encounter Care Teams Revenue Analyst Relationship Specialty Start Date End Date Avtar Frausto MD [address] [place] [id number] PCP - General Family Medicine 10/23/17 documented as of this encounter
--- OUTSIDE RECORDS SUMMARY | 2025-04-12 12:16 | XMS_ITS | Clinical Summary ---
Author Organization [facility] [address] Address [address] [place] [address] Care Team Providers Care Fiber Machine Tender Name Role Phone Avtar Frausto MD Primary Care Provider [phone] Allergies No known active allergies Medications cartilage/collag [...] Comments Blood Pressure 122/79 07/20/2024 10:19 AM MEDICAL RECORD ADMINISTRATOR Pulse 66 07/20/2024 10:19 AM MEDICAL RECORD ADMINISTRATOR Temperature 36.3 C (97.3 F) 07/06/2020 10:13 AM MEDICAL RECORD ADMINISTRATOR Respiratory Rate - - Oxygen Saturation 97% 07/20/2024 10:19 AM MEDICAL RECORD ADMINISTRATOR Inhaled Oxygen Concentration - - Weight 66.2 kg (146 lb) 07/20/2024 10:19 AM MEDICAL RECORD ADMINISTRATOR Height 170.2 cm (5' 7) 07/20/2024 10:19 AM MEDICAL RECORD ADMINISTRATOR Body Mass Index 22.87 07/20/2024 10:19 AM MEDICAL RECORD ADMINISTRATOR Plan of Treatment Health Maintenance Due Date [...] Pneumococcal vaccine 65+ Completed 04/19/2019, 03/23 Insurance [employer] [facility] Care Teams Fiber Machine Tender Relationship Specialty Start Date End Date Avtar Frausto MD [address] [place] [id number] PCP - General Family Medicine 10/23/17
--- OUTSIDE RECORDS SUMMARY | 2025-04-12 12:16 | XMS_ITS | Encounter Summary ---
Author Organization [facility] Healthcare Address [address] [place] [address] Care Team Providers Care Diabetes Clinical Manager Name Role Phone Avtar Frausto MD Primary Care Provider [phone] Encounter Details Date Type Department Care Team (Late st Contact Info) Description 10/20/2017 [place] [facility] [place] [address] [place] [phone] Scanning, Provider Social History Tobacco Use [...] on filedocumented in this encounter Care Teams Diabetes Clinical Manager Relationship Specialty Start Date End Date Avtar Frausto MD [address] [place] [id number] PCP - General Family Medicine 10/23/17 documented as of this encounter
--- OUTSIDE RECORDS SUMMARY | 2025-04-12 12:16 | XMS_ITS | Encounter Summary ---
Author Organization [facility] Healthcare Address [address] [place] [address] Care Team Providers Care Testing Projects Administrator Name Role Phone Avtar Frausto MD Primary Care Provider [phone] Encounter Details Date Type Department Care Team (Late st Contact Info) Description 11/22/2017 Orders Only [facility] [place] Health Information Management [address] [place] [id number] Scanning, Provider Social History Tobacco Use [...] on filedocumented in this encounter Care Teams Testing Projects Administrator Relationship Specialty Start Date End Date Avtar Frausto MD [address] [place] [id number] PCP - General Family Medicine 10/23/17 documented as of this encounter
== END 2025-04-12 10:09 | disposition home or self-care (01) ==
LOC: ANHFOHIMG 10:11
PROVIDERS: PCP Family Medicine; Visit Provider Family Medicine
DX: Z12.31 Encounter for screening mammogram for malignant neoplasm of breast (principal)
CPT/HCPCS: 77063; 77067

== ENCOUNTER 2025-04-28 11:00 | Outpatient (RCR) | payer MEDICARE, SELFPAY ==
--- NOTE | 2025-03-24 09:04 | OPREHPOC ---
Outpatient Therapy Plan of Care This is a Multidisciplinary Plan of Care that may contain components documented by all disciplines (PT, OT, and ST.) PT Problem 1 PT Problem #1 Knowledge Deficit PT Goal 1 Goal / Goal Update *independent with HEP * good safety awareness with mobility Target Visit 6 PT Problem 2 PT Problem #2 Impaired Balance PT Goal 1 Goal / Goal Update impaired balance due to R hearing and vestibular changes: improve mobility and safety with daily activities: pt perform without dizziness or loss of balance : 1* standing 360' turn to R x1 reps 2* pick an item up off the floor x 1 rep 3* Garcia balance score of 56/56 4* 2 minute walking test distance of 525', to improve community ambulation and fitness activity Target Visit 6
--- NOTE | 2025-03-24 09:04 | PTOPEVAL1 ---
Assessment and note entered by Leila Davila, PT Evaluation Information Assessment Status Evaluation ICD-10 Condition Codes (PT) Difficulty Walking R26.2,Abnormalities of gait and mobility R26.9,Dizziness and Giddiness R42 Subjective Information woke up 9-25-25 AM, was dizzy, could not walk, vomited; had to call ambulance to go to the hospital; was hospitalized 5 days, tests ran: audiology- total hearing loss R ear; ear wax removed from L ear; on high dose of predisone; have meclazine, but not taken lately; no falls; symptoms are much better, but problems with walking and off balance/wobbly; R ear deaf, but have sounds of constant loud static, crackling noise no history of vertigo; had shingles about 4 months ago over R shoulder and upper trunk; --------- symptoms: mild spinning increase with bend forward, look up, move quickly resolve few seconds --------- activity level: home with , active and no limitation in activity level, retired; Reported Pain Level Pain Score 0: Self Report Assessment PT Clinical Summary 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 She was hospitalized due to severe dizziness. Prior activity level- active and no limitations in activity level. She had sudden onset of R ear deafness, confirmed by hearing test. Dizziness Handicap Index self rating of 36% limitation in activity level. She is on high dose of prednisone and has appt next week for injections of prednisone into her R ear. With the evaluation: slight dizziness that clears in a few seconds with: bending over to pick item up off floor, standing 360' turn to the R and with moving quickly; BPPV testing was negative; Garcia balance score of 49/56; 2 minute walking test distance of 480' with good gait pattern. LE active ROM and strength are WNL. Skilled PT services are indicated for vestibular therapy and increase standing balance, due due R ear labyrinthitis, and safety with mobility, with education for HEP. Plan of Care Interventions Neuro Re-education,Patient/Caregiver Education, Therapeutic Activities,Therapeutic Exercise PT Services Indicated Yes Treatment Frequency and 1-2x/wk for 6 visits Duration These treatments will address the objective and functional deficits as defined above. The patient will be advanced safely and appropriately in order for the patient to progress towards his/her prior level of function. Additional exercises will be introduced and as well as a comprehensive home exercise program upon discharge, if needed, ?to ensure carryover of functional gains achieved in the clinic. This treatment plan has been reviewed and agreement upon by the patient.
--- NOTE | 2025-04-28 11:35 | OPREHPOC ---
Outpatient Therapy Plan of Care This is a Multidisciplinary Plan of Care that may contain components documented by all disciplines (PT, OT, and ST.) PT Problem 1 PT Problem #1 Knowledge Deficit PT Goal 1 Goal / Goal Update *independent with HEP * good safety awareness with mobility 04-28-25 d/c goals met Target Visit 6 Progress Met PT Problem 2 PT Problem #2 Impaired Balance PT Goal 1 Goal / Goal Update impaired balance due to R hearing and vestibular changes: improve mobility and safety with daily activities: pt perform without dizziness or loss of balance : 1* standing 360' turn to R x1 reps 2* pick an item up off the floor x 1 rep 3* Garcia balance score of 56/56 4* 2 minute walking test distance of 525', to improve community ambulation and fitness activity 04-28-25 d/c goals met, except #1 causes dizziness Target Visit 6 Progress Partially Met
--- NOTE | 2025-04-28 11:36 | PTOPDC ---
Assessment and note entered by Leila Davila, PT Assessment Status Discharge ICD-10 Condition Codes (PT) Difficulty Walking R26.2,Abnormalities of gait and mobility R26.9,Dizziness and Giddiness R42 Subjective Information had 3 injections in her R ear and with the clinical resource director test, was able to hear some low tones; have some good and bad days with my balance, not sure why; problems with leaning head down to get into cabinets, feel like someone behind me pushing me forward and moving head quickly bothers me; have not had any falls; ready to be finished with therapy and do the exercises at home . Reported Pain Level Pain Score 0: Self Report Assessment PT Clinical Summary Brianne has received 6 PT sessions. She is more secure and confident with her walking and has not had any falls. She has returned to walking for fitness. She has improved with self rating of Dizziness Handicap Index rating of 14% limitation in activity level; Garcia balance score of 56/56; 2 minute walking test distance of 525'; only testing activity that caused dizziness was standing 360' turn to R x 1 rep; education completed for HEP, safety with mobility and balance. The goals were achieved except 360' turn to R x1 rep caused dizziness. Discharge PT. She is to continue with her HEP, progress activity as tolerated. Plan of Care PT Services Indicated No
== END 2025-04-28 12:31 | disposition home or self-care (01) ==
LOC: ANHPT 11:00
PROVIDERS: PCP Family Medicine; Visit Provider Family Medicine
DX: R42 Dizziness and giddiness (principal); R26.9 Unspecified abnormalities of gait and mobility; R26.2 Difficulty in walking, not elsewhere classified
CPT/HCPCS: 97110; 97112; 97161; 97530

== ENCOUNTER 2025-06-11 08:09 | Emergency (ER) | payer MEDICARE, SELFPAY ==
[2025-06-11 08:18] VITALS: BP 110/67; PULSE 72; RESP 20; TEMP 36.8; O2SAT 97
--- NOTE | 2025-06-11 08:35 | ED.URI ---
HPI - URI/Sore Throat General Chief Complaint: Upper Respiratory Infection Stated Complaint: runny nose/sore throat/fever/cough Time Seen by Provider: 06/11/25 08:25 Source: patient and RN notes reviewed Mode of arrival: ambulatory Limitations: no limitations History of Present Illness HPI Narrative: 74-year-old female patient with history of AFib on Eliquis presents today complaining of a 2 day history of sore throat, rhinorrhea, dry cough, and fever to 102.. She has been taking Mucinex and Tylenol with some relief. Exposed to a friend with COVID. Tested positive for COVID at home twice yesterday. Related Data Home Medications ?Medication ?Instructions ?Recorded ?Confirmed ?Last Taken ?Type carvedilol 25 mg tablet 25 mg PO Q12H 08/26/22 05/04/25 03/14/25 History losartan 100 mg tablet 100 mg PO HS 08/26/22 05/04/25 03/14/25 History amiodarone 200 mg tablet 100 mg PO DAILY 09/18/22 05/04/25 03/14/25 History cartilage 40 mg-collagen II-boron 1 tablet PO DAILY 07/25/24 05/04/25 03/14/25 History 5 mg-hyaluronate sod 3.3 mg tablet (Move Free Ultra Triple Action (boron)) rosuvastatin 5 mg tablet 5 mg PO HS 03/15/25 05/04/25 03/14/25 History Allergies Allergy/AdvReac Type Severity Reaction Status Date / Time dronedarone (From Multaq) Allergy Shakiness Verified 06/11/25 08:26 codeine AdvReac Intermediate NAUSEA, Verified 06/11/25 08:26 VOMITING AND HEADACHE. 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 Family history of malignant neoplasm of digestive organs Atrial fibrillation Hypertension Arthritis Surgical History Surgical History History of lumpectomy breast, benign Family History Family History Mother Colon cancer Father Parkinson disease Social History Social History Smoking status: Never smoker Second hand tobacco smoke exposure: No Alcohol intake: current Drinks per week: 1 Alcohol use details: DIANA Substance use: never Substance use type: does not use Lack of Transportation: No Lack of Food: Never True Current Housing: I Have Housing Concerned About Future Housing: No Difficulty Paying Gas/Electric Bills: No Difficulty Paying for Meds: No Currently Unemployed: No Education: Associate Degree Difficulty w/ Childcare or Family Care: No Living arrangements: alone Occupation/Education: retired Gender identity (if verbalized by the patient): Female Sexual Orientation (if Verbalized by the Patient): Straight or Heterosexual Spiritual care concerns: No Comments At time of signature, I have reviewed and agree with nursing past medical, surgical, social and family history unless otherwise noted. Please see nursing chart for further information. There is no relevant family history pertinent to the presenting complaint Exam Narrative: GENERAL: Well-appearing, well-nourished, and in no acute distress. HEAD: Normocephalic, atraumatic. EYES: EOMI. No redness or drainage. Conjunctivae normal. ENT: Mucous membranes pink and moist. Nares clear. + rhinorrhea. TMs normal bilaterally. Throat normal. Uvula midline. NECK: Normal AROM. Supple. No lymphadenopathy. CHEST: No respiratory distress. Clear to auscultation. HEART: Regular rate and rhythm. No murmur appreciated. EXTREMITIES: Normal range of motion. No edema. SKIN: Warm, dry, no rash. Capillary refill normal. Normal skin turgor. NEURO: No focal deficits. Alert and oriented x3. Gait steady. PSYCH: Normal affect. No signs of depression or anxiety. Course Course Level of Care: Express Care Visit Vital Signs Vital signs: Vital Signs Temperature 98.2 F 06/11/25 08:18 Pulse Rate 72 06/11/25 08:18 Respiratory Rate 20 06/11/25 08:18 Blood Pressure 110/67 06/11/25 08:18 Pulse Oximetry 97 06/11/25 08:18 Oxygen Delivery Room Air 06/11/25 08:18 Temperature 98.2 F 06/11/25 08:18 Pulse Rate 72 06/11/25 08:18 Respiratory Rate 20 06/11/25 08:18 Blood Pressure 110/67 06/11/25 08:18 Pulse Oximetry 97 06/11/25 08:18 Oxygen Delivery Room Air 06/11/25 08:18 Reviewed MDM MDM Narrative Medical decision making narrative: 74-year-old female patient with history of AFib on Eliquis presents today complaining of a 2 day history of sore throat, rhinorrhea, dry cough, and fever to 102.. She has been taking Mucinex and Tylenol with some relief. Exposed to a friend with COVID. Tested positive for COVID at home twice yesterday. Upon exam, patient has some mild rhinorrhea, but exam is otherwise negative. Patient tested positive for COVID a hole. She is ineligible for Paxlovid due to Eliquis use. Discussed [id number] medication use and duration of illness as well as a strict ED precautions. Vital signs stable. Patient agrees with plan. Differential Diagnosis Differential Diagnosis: COVID-19, pneumonia, respiratory distress Critical Care Time Critical Care Time Critical Care Time: No Discharge Plan Discharge Clinical Impression: COVID-19 Patient Disposition: Home Condition: Stable Instructions: COVID-19 (Coronavirus Disease 2019) (ED) Additional Instructions: Continue [id number] medication for symptoms. As discussed, if you develop shortness of breath, chest pain, please go to the ER immediately for further evaluation. Patient Language: Syriac Prescriptions: No Action triamterene-hydrochlorothiazid 37.5-25 mg capsule 1 cap PO DAILY Qty: 100 1RF apixaban 5 mg tablet 5 mg PO BID Qty: 200 1RF losartan 100 mg tablet 100 mg PO HS carvedilol 25 mg tablet 25 mg PO Q12H Rx Instructions: must administer with a meal/food amiodarone 200 mg tablet 100 mg PO DAILY gwupngouv-jcojined-dre-hyalur [Move Free Ultra Triple Action] 40-5-3.3 mg tablet 1 tablet PO DAILY rosuvastatin 5 mg tablet 5 mg PO HS gabapentin 300 mg capsule 300 mg PO DAILY Qty: 90 1RF Follow-up/Referrals: Avtar Frausto MD [Primary Care Provider, [facility]] Time of Disposition: 08:41
== END 2025-06-11 08:50 | disposition home or self-care (01) ==
PROVIDERS: Emergency Provider Nurse Practitioner; PCP Family Medicine
DX: U07.1 COVID-19 (principal); I48.91 Unspecified atrial fibrillation; I10 Essential (primary) hypertension; E78.5 Hyperlipidemia, unspecified; H81.01 Meniere's disease, right ear; Z86.73 Personal history of transient ischemic attack (TIA), and cerebral infarction without residual deficits; Z79.01 Long term (current) use of anticoagulants
CPT/HCPCS: 99211; G0463